=== PATIENT | female | born 1945 | race Two or more races ===

== ENCOUNTER → 2024-11-06 | Outpatient (CLI) | payer MEDICARE, MEDICAID, SELFPAY ==
[2024-11-06 16:49] LABS: Basophils % (Auto) 1 % (0-2.5); Eosinophils # (Auto) 0.5 Thou/mm3 (0.0-0.5); Eosinophils % (Auto) 7 % (0-10); Hematocrit 34.1 % (36.0-46.0); Hemoglobin 10.8 g/dL (12.0-16.0); Immature Granulocytes % (Auto) 1 % (0-0); Immature Granulocytes Auto 0.05 Thou/mm3 (0.00-0.00); Lymphocytes # (Auto) 2.3 Thou/mm3 (1.0-4.8); Lymphocytes % (Auto) 36 % (10-50); Mean Corpuscular HGB Conc 31.7 g/dl (31.0-37.0); Mean Corpuscular Volume 88 fL (80-100); Monocytes # (Auto) 0.6 Thou/mm3 (0.0-0.8); Monocytes % (Auto) 9 % (0-12); Neutrophils % (Auto) 46 % (37-80); Nucleated Red Blood Cell % 0 /100 WBC (0); Platelet Count 184 Thou/mm3 (140-440); RDW Standard Deviation 46.2 fL (36.4-46.3); Red Blood Count 3.86 Miln/mm3 (4.00-5.20); White Blood Count 6.5 Thou/mm3 (3.6-11.0)
[2024-11-06 17:13] LABS: Albumin, Serum 3.8 gm/dL (3.4-4.8); Anion Gap 8 (7-16); BUN/Creatinine Ratio 21 Ratio (12-20); Blood Urea Nitrogen 33 mg/dL (9-23); Calcium 8.8 mg/dL (8.3-10.6); Carbon Dioxide 25.8 mMol/L (20.0-31.0); Chloride 107 mMol/L (98-107); Creatinine (Component) 1.6 mg/dL (0.6-1.3); Glucose 187 mg/dL (74-106); Osmolality,Calculated 293 (275-295); Phosphorous 3.7 mg/dL (2.4-5.1); Potassium 4.4 mMol/L (3.4-5.1); Sodium 141 mMol/L (136-145); eGFR 33 See Note
[2024-11-06 17:46] LABS: Iron 46 mcg/dL (50-170); Percent Iron Saturation 12 % (20-55); Total Iron Binding Capacity 356 mcg/dL (250-425); Unsaturated Iron Binding 310 (225-295)
== END | disposition home or self-care (01) ==
LOC: COPL 15:23
PROVIDERS: PCP Family Medicine; Referring Provider Internal Medicine; Visit Provider Internal Medicine
DX: I12.9 Hypertensive chronic kidney disease with stage 1 through stage 4 chronic kidney disease, or unspecified chronic kidney disease (principal); E11.22 Type 2 diabetes mellitus with diabetic chronic kidney disease; N18.32 Chronic kidney disease, stage 3b
CPT/HCPCS: 36415; 80069; 83540; 83550; 85025

== ENCOUNTER → 2025-01-31 | Outpatient (CLI) | payer MEDICARE, MEDICAID, SELFPAY ==
[2025-01-31 17:12] LABS: Basophils # (Auto) 0.1 Thou/mm3 (0.0-0.2); Basophils % (Auto) 1 % (0-2.5); Eosinophils # (Auto) 0.4 Thou/mm3 (0.0-0.5); Eosinophils % (Auto) 7 % (0-10); Hematocrit 36.8 % (36.0-46.0); Hemoglobin 11.6 g/dL (12.0-16.0); Immature Granulocytes % (Auto) 0 % (0-0); Immature Granulocytes Auto 0.01 Thou/mm3 (0.00-0.00); Lymphocytes % (Auto) 31 % (10-50); Mean Corpuscular HGB Conc 31.5 g/dl (31.0-37.0); Mean Corpuscular Hemoglobin 29.2 pg (25.0-35.0); Mean Corpuscular Volume 93 fL (80-100); Monocytes # (Auto) 0.6 Thou/mm3 (0.0-0.8); Monocytes % (Auto) 9 % (0-12); Neutrophils # (Auto) 3.4 Thou/mm3 (1.8-7.7); Neutrophils % (Auto) 52 % (37-80); Nucleated Red Blood Cell % 0 /100 WBC (0); Platelet Count 174 Thou/mm3 (140-440); Red Blood Count 3.97 Miln/mm3 (4.00-5.20); White Blood Count 6.5 Thou/mm3 (3.6-11.0)
[2025-01-31 17:26] LABS: Albumin, Serum 3.8 gm/dL (3.4-4.8); Anion Gap 7 (7-16); BUN/Creatinine Ratio 21 Ratio (12-20); Blood Urea Nitrogen 31 mg/dL (9-23); Calcium 8.8 mg/dL (8.3-10.6); Carbon Dioxide 25.2 mMol/L (20.0-31.0); Chloride 113 mMol/L (98-107); Creatinine (Component) 1.5 mg/dL (0.6-1.3); Glucose 166 mg/dL (74-106); Osmolality,Calculated 299 (275-295); Phosphorous 3.1 mg/dL (2.4-5.1); Potassium 4.6 mMol/L (3.4-5.1); Sodium 145 mMol/L (136-145); eGFR 35 See Note
[2025-01-31 17:33] LABS: Iron 53 mcg/dL (50-170); Percent Iron Saturation 15 % (20-55); Total Iron Binding Capacity 335 mcg/dL (250-425); Unsaturated Iron Binding 282 (225-295)
[2025-01-31 17:37] LABS: Vitamin D 25 Hydroxy Total 23.3 ng/mL (7.3-40.2)
== END | disposition home or self-care (01) ==
LOC: COPL 15:43
PROVIDERS: PCP Family Medicine; Referring Provider Internal Medicine; Visit Provider Internal Medicine
DX: I12.9 Hypertensive chronic kidney disease with stage 1 through stage 4 chronic kidney disease, or unspecified chronic kidney disease (principal); E11.22 Type 2 diabetes mellitus with diabetic chronic kidney disease; N18.32 Chronic kidney disease, stage 3b
CPT/HCPCS: 36415; 80069; 82306; 83540; 83550; 85025

== ENCOUNTER → 2025-05-03 | Outpatient (CLI) | payer MEDICARE, MEDICAID, SELFPAY ==
[2025-05-03 16:29] LABS: Basophils # (Auto) 0.1 Thou/mm3 (0.0-0.2); Basophils % (Auto) 1 % (0-2.5); Eosinophils # (Auto) 0.4 Thou/mm3 (0.0-0.5); Eosinophils % (Auto) 6 % (0-10); Hematocrit 35.1 % (36.0-46.0); Hemoglobin 11.7 g/dL (12.0-16.0); Immature Granulocytes Auto 0.02 Thou/mm3 (0.00-0.00); Lymphocytes # (Auto) 2.0 Thou/mm3 (1.0-4.8); Lymphocytes % (Auto) 27 % (10-50); Mean Corpuscular HGB Conc 33.3 g/dl (31.0-37.0); Mean Corpuscular Hemoglobin 30.0 pg (25.0-35.0); Mean Corpuscular Volume 90 fL (80-100); Monocytes # (Auto) 0.6 Thou/mm3 (0.0-0.8); Monocytes % (Auto) 8 % (0-12); Neutrophils # (Auto) 4.3 Thou/mm3 (1.8-7.7); Neutrophils % (Auto) 59 % (37-80); Nucleated Red Blood Cell # 0.00 Thou/mm3 (0.00-0.00); Nucleated Red Blood Cell % 0 /100 WBC (0); Platelet Count 184 Thou/mm3 (140-440); RDW Standard Deviation 45.1 fL (36.4-46.3); Red Blood Count 3.90 Miln/mm3 (4.00-5.20); White Blood Count 7.4 Thou/mm3 (3.6-11.0)
[2025-05-03 16:50] LABS: Albumin, Serum 3.9 gm/dL (3.4-4.8); Anion Gap 10 (7-16); BUN/Creatinine Ratio 24 Ratio (12-20); Blood Urea Nitrogen 36 mg/dL (9-23); Calcium 8.9 mg/dL (8.3-10.6); Calcium (Corrected) 9.0 mg/dL (8.5-10.1); Carbon Dioxide 23.0 mMol/L (20.0-31.0); Chloride 110 mMol/L (98-107); Creatinine (Component) 1.5 mg/dL (0.6-1.3); Glucose 220 mg/dL (74-106); Osmolality,Calculated 300 (275-295); Phosphorous 3.1 mg/dL (2.4-5.1); Potassium 4.4 mMol/L (3.4-5.1); Sodium 143 mMol/L (136-145); eGFR 35 See Note
[2025-05-03 16:59] LABS: Iron 47 mcg/dL (50-170); Percent Iron Saturation 14 % (20-55); Total Iron Binding Capacity 323 mcg/dL (250-425); Unsaturated Iron Binding 276 (225-295)
[2025-05-03 17:03] LABS: Vitamin D 25 Hydroxy Total 36.9 ng/mL (7.3-40.2)
== END | disposition home or self-care (01) ==
LOC: COPL 15:25
PROVIDERS: PCP Family Medicine; Referring Provider Internal Medicine; Visit Provider Internal Medicine
DX: D50.9 Iron deficiency anemia, unspecified (principal); E11.22 Type 2 diabetes mellitus with diabetic chronic kidney disease; I12.9 Hypertensive chronic kidney disease with stage 1 through stage 4 chronic kidney disease, or unspecified chronic kidney disease; N18.32 Chronic kidney disease, stage 3b
CPT/HCPCS: 36415; 80069; 82306; 83540; 83550; 85025

== ENCOUNTER → 2025-08-09 | Outpatient (CLI) | payer MEDICARE, MEDICAID, SELFPAY ==
[2025-08-09 16:26] LABS: Basophils # (Auto) 0.1 Thou/mm3 (0.0-0.2); Basophils % (Auto) 1 % (0-2.5); Eosinophils # (Auto) 0.3 Thou/mm3 (0.0-0.5); Eosinophils % (Auto) 5 % (0-10); Hematocrit 37.1 % (36.0-46.0); Hemoglobin 11.8 g/dL (12.0-16.0); Immature Granulocytes Auto 0.02 Thou/mm3 (0.00-0.00); Lymphocytes # (Auto) 2.0 Thou/mm3 (1.0-4.8); Lymphocytes % (Auto) 30 % (10-50); Mean Corpuscular HGB Conc 31.8 g/dl (31.0-37.0); Mean Corpuscular Hemoglobin 30.2 pg (25.0-35.0); Mean Corpuscular Volume 95 fL (80-100); Monocytes # (Auto) 0.5 Thou/mm3 (0.0-0.8); Monocytes % (Auto) 8 % (0-12); Neutrophils # (Auto) 3.7 Thou/mm3 (1.8-7.7); Neutrophils % (Auto) 56 % (37-80); Nucleated Red Blood Cell # 0.00 Thou/mm3 (0.00-0.00); Nucleated Red Blood Cell % 0 /100 WBC (0); Platelet Count 182 Thou/mm3 (140-440); RDW Standard Deviation 47.4 fL (36.4-46.3); Red Blood Count 3.91 Miln/mm3 (4.00-5.20); White Blood Count 6.6 Thou/mm3 (3.6-11.0)
[2025-08-09 16:38] LABS: Albumin, Serum 4.2 gm/dL (3.4-4.8); Anion Gap 10 (7-16); BUN/Creatinine Ratio 16 Ratio (12-20); Blood Urea Nitrogen 27 mg/dL (9-23); Calcium 8.7 mg/dL (8.3-10.6); Calcium (Corrected) 8.7 mg/dL (8.5-10.1); Carbon Dioxide 25.1 mMol/L (20.0-31.0); Chloride 113 mMol/L (98-107); Creatinine (Component) 1.7 mg/dL (0.6-1.3); Glucose 132 mg/dL (74-106); Iron 50 mcg/dL (50-170); Osmolality,Calculated 301 (275-295); Percent Iron Saturation 15 % (20-55); Phosphorous 3.3 mg/dL (2.4-5.1); Potassium 4.4 mMol/L (3.4-5.1); Sodium 148 mMol/L (136-145); Total Iron Binding Capacity 327 mcg/dL (250-425); Unsaturated Iron Binding 277 (225-295); eGFR 30 See Note
== END | disposition home or self-care (01) ==
LOC: COPL 15:32
PROVIDERS: PCP Family Medicine; Referring Provider Internal Medicine; Visit Provider Internal Medicine
DX: I12.9 Hypertensive chronic kidney disease with stage 1 through stage 4 chronic kidney disease, or unspecified chronic kidney disease (principal); E11.22 Type 2 diabetes mellitus with diabetic chronic kidney disease; N18.32 Chronic kidney disease, stage 3b; D50.9 Iron deficiency anemia, unspecified
CPT/HCPCS: 36415; 80069; 83540; 83550; 85025

== ENCOUNTER → 2025-09-03 | Outpatient (CLI) | payer MEDICARE, MEDICAID, SELFPAY ==
[2025-09-03 17:04] LABS: Albumin, Serum 4.2 gm/dL (3.4-4.8); Anion Gap 11 (7-16); BUN/Creatinine Ratio 23 Ratio (12-20); Blood Urea Nitrogen 32 mg/dL (9-23); Calcium 8.8 mg/dL (8.3-10.6); Calcium (Corrected) 8.8 mg/dL (8.5-10.1); Carbon Dioxide 24.3 mMol/L (20.0-31.0); Chloride 112 mMol/L (98-107); Creatinine (Component) 1.4 mg/dL (0.6-1.3); Glucose 130 mg/dL (74-106); Osmolality,Calculated 301 (275-295); Phosphorous 3.0 mg/dL (2.4-5.1); Potassium 4.6 mMol/L (3.4-5.1); Sodium 147 mMol/L (136-145); eGFR 38 See Note
== END | disposition home or self-care (01) ==
PROVIDERS: PCP Family Medicine; Referring Provider Internal Medicine; Visit Provider Internal Medicine
DX: I12.9 Hypertensive chronic kidney disease with stage 1 through stage 4 chronic kidney disease, or unspecified chronic kidney disease (principal); E11.22 Type 2 diabetes mellitus with diabetic chronic kidney disease; N18.32 Chronic kidney disease, stage 3b; D50.9 Iron deficiency anemia, unspecified
CPT/HCPCS: 36415; 80069

== ENCOUNTER 2025-10-14 08:25 | Inpatient (IN) | payer MEDICARE, MEDICAID, SELFPAY ==
[2025-10-14] VITALS (10 sets, daily range): BP systolic 138–167; BP diastolic 57–98; PULSE 49–54; RESP 18–22; TEMP 36.1–37.1; O2SAT 95–99; BMI 35.8
--- NOTE | 2025-10-14 08:30 | EKG_ITS ---
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
--- NOTE | 2025-10-14 08:52 | XR_ITS ---
Study: AP upright chest radiograph of 0901 hours 14 October 2025. INDICATION: Chest pressure and pain for 2 days. COMPARISON: Chest radiograph of 22 September 2017. FINDINGS: The lungs are fully expanded and free from alveolar infiltrates and nodules. There are no effusions. The heart is normal in size and contour. The aortic arch is minimally calcified. The descending segment is mildly tortuous. Peripheral vessels are normal in volume and distribution IMPRESSION: No acute diagnostic abnormality. No significant interval change./
--- NOTE | 2025-10-14 08:52 | PD.EDRME ---
Rapid Medical Screening Exam RME Arrival date/time: 10/14/25 08:25 79-year-old female with a history of type 2 diabetes, hypertension, presents to the emergency room with a chief complaint of 6 out of 10 sternal chest pain that radiates to her back x 1 day I have greeted and performed a focused initial assessment of this patient. A comprehensive ED assessment and evaluation of the patient, analysis of all test results, and completion of the medical decision making process will be conducted by additional ED providers. Chief Complaint: Chest Pain Time Seen by Provider: 10/14/25 08:39 Vital signs: Vital Signs Temperature 97.7 F 10/14/25 08:33 Pulse Rate 54 L 10/14/25 08:33 Respiratory Rate 18 10/14/25 08:33 Blood Pressure 164/66 H 10/14/25 08:33 Pulse Oximetry (%) 97 10/14/25 08:33 Oxygen Delivery Method Room Air 10/14/25 08:33 Vital signs reviewed by provider: Yes Exam: Clear bilateral lung sounds Strong and regular rhythm S1 and S2 noted Clinical Impression: STEMI/NSTEMI/chest pain
[2025-10-14 09:12] LABS: Basophils # (Auto) 0.1 Thou/mm3 (0.0-0.2); Basophils % (Auto) 1 % (0-2.5); Eosinophils # (Auto) 0.3 Thou/mm3 (0.0-0.5); Eosinophils % (Auto) 4 % (0-10); Hematocrit 40.4 % (36.0-46.0); Hemoglobin 12.6 g/dL (12.0-16.0); Immature Granulocytes Auto 0.02 Thou/mm3 (0.00-0.00); Lymphocytes # (Auto) 1.6 Thou/mm3 (1.0-4.8); Lymphocytes % (Auto) 22 % (10-50); Mean Corpuscular HGB Conc 31.2 g/dl (31.0-37.0); Mean Corpuscular Hemoglobin 29.4 pg (25.0-35.0); Mean Corpuscular Volume 94 fL (80-100); Monocytes # (Auto) 0.4 Thou/mm3 (0.0-0.8); Monocytes % (Auto) 6 % (0-12); Neutrophils # (Auto) 5.0 Thou/mm3 (1.8-7.7); Neutrophils % (Auto) 68 % (37-80); Nucleated Red Blood Cell # 0.00 Thou/mm3 (0.00-0.00); Nucleated Red Blood Cell % 0 /100 WBC (0); Platelet Count 186 Thou/mm3 (140-440); RDW Standard Deviation 46.2 fL (36.4-46.3); Red Blood Count 4.28 Miln/mm3 (4.00-5.20); White Blood Count 7.4 Thou/mm3 (3.6-11.0)
[2025-10-14 09:25] LABS: INR 1.0 (0.9-1.3); Partial Thromboplastin Time 27.2 Seconds (22.0-36.0); Prothrombin Time 10.6 Seconds (9.0-12.2)
[2025-10-14 09:27] LABS: B-Type Natriuretic Peptide 125 pg/mL (0-100)
--- NOTE | 2025-10-14 09:46 | PD.EDCHEST ---
ED Chest Pain RME/HPI General Chief Complaint: Chest Pain Stated Complaint: CHEST PAIN SINCE 7AM, SOB Time Seen by Provider: 10/14/25 08:39 Arrival date/time: 10/14/25 08:25 Limitations: no limitations RME / HPI RME / HPI narrative: 10/14/25 08:25 79-year-old female with a history of type 2 diabetes, hypertension, presents to the emergency room with a chief complaint of 6 out of 10 sternal chest pain that radiates to her back x 1 day I have greeted and performed a focused initial assessment of this patient. A comprehensive ED assessment and evaluation of the patient, analysis of all test results, and completion of the medical decision making process will be conducted by additional ED providers. DR. LR MAIN ED EVALUATION: 79 year old female with history of hypertension and diabetes presents to the ED for evaluation of chest pain beginning at 7 am today, remaining constant for ~ 30 min to 1 hour and since occurring intermittently. Described as sharp stabbing in sensation that is located most to substernal chest with radiation up to the left shoulder and back, rating 6/10 in severity. Accompanied by feeling slightly short of breath. No other associated symptoms reported. Denies fevers, chills, sweats, cough, abdominal pain, nausea, vomiting. Family history of cardiac disease, father had a heart attack in his 60s. Exam: Clear bilateral lung sounds Strong and regular rhythm S1 and S2 noted Impression: STEMI/NSTEMI/chest pain Related Data Home Medications ?Medication ?Instructions ?Recorded ?Confirmed glipizide 10 mg tablet 10 mg PO BID #0 tabs 09/20/17 10/14/25 losartan 100 mg tablet (Cozaar) 100 mg PO QDAY #0 tabs 09/20/17 10/14/25 montelukast 10 mg tablet 10 mg PO HS #0 tabs 09/20/17 10/14/25 (Singulair) chlorthalidone 50 mg tablet 50 mg PO QDAY #0 tabs 09/21/17 10/14/25 metoprolol succinate 100 mg 100 mg PO QDAY ##0 09/21/17 10/14/25 tablet,extended release 24 hr (Toprol XL) empagliflozin 25 mg tablet 25 mg PO QDAY 05/16/20 10/14/25 (Jardiance) nifedipine 10 mg capsule 50 mg PO QDAY 05/16/20 10/14/25 albuterol sulfate 90 mcg/actuation 2 puff inhalation PRN 10/14/25 10/14/25 aerosol inhaler aspirin 81 mg tablet,delayed 81 mg PO QDAY 10/14/25 10/14/25 release atorvastatin 10 mg tablet 10 mg PO QDAY 10/14/25 10/14/25 insulin glargine 100 unit/mL (3 25 unit subcut .am 10/14/25 10/14/25 mL) subcutaneous pen (Lantus Solostar U-100 Insulin) loratadine 10 mg tablet 10 mg PO QDAY 10/14/25 10/14/25 Allergies Allergy/AdvReac Type Severity Reaction Status Date / Time Penicillins Allergy Intermediate RASH AND Verified 10/14/25 08:27 ITCHING lisinopril Allergy Mild Cough Verified 10/14/25 08:27 metformin Allergy Mild Rash Verified 10/14/25 08:27 Review of Systems Review of Systems Systems Reviewed: All systems reviewed, normal except as documented Past Medical History Past Medical History CARDIAC: Positive Cardiac Disorders and Hypertension RESPIRATORY: Positive Asthma GASTROINTESTINAL: Positive Gastrointestinal Disorders, Hemorrhoids and Obesity GENITOURINARY: Positive Genitourinary Disorders and Renal Disease REPRODUCTIVE: Positive Previous Pregnancies (x3) MUSCULOSKELETAL: Positive Musculoskeletal Disorders and Arthritis ENT: Positive Cataracts ENDOCRINE: Positive Endocrine Disorders and Diabetes Mellitus Type 2 OTHER HISTORY: Positive Chicken Pox and Measles Family History FAMILY HISTORY: Positive Family Cancer Surgical History SURGICAL: Positive Tubal Ligation Social History SMOKING STATUS: Never smoker ED Exam General Limitations: Present no limitations General appearance: Present alert, in no apparent distress, obese and other (wears glasses ) Head Head exam: Present atraumatic Eye Eye exam: Present normal appearance, PERRL and EOMI ENT ENT exam: Present normal exam, normal oropharynx and mucous membranes moist Neck Neck exam: Present normal inspection, full ROM and trachea midline Chest Chest inspection: Present normal inspection and symmetric chest wall rise Respiratory Respiratory exam: Present normal lung sounds bilaterally Cardiovascular Cardiovascular exam: Present regular rate, normal rhythm and normal heart sounds Abdominal Exam Abdominal exam: Present soft and normal bowel sounds Extremities Exam Extremities exam: Present normal inspection and full ROM Back Exam Back exam: Present normal inspection and full ROM Neurological Exam Neurological exam: Present alert, oriented X3 and CN II-XII intact Psychiatric Psychiatric exam: Present normal affect and normal mood Skin Skin exam: Present warm, dry, intact and normal color Course Quality Measures none Orders Category Date Time Status Admit to Inpatient Status Routine Admission 10/14/25 18:16 Active Patient Condition Routine Admission 10/14/25 18:15 Ordered COVID-19 Screening Questionnaire NOW Care 10/14/25 17:07 Active Toys Inspector NOW Care 10/14/25 09:41 Active Continuous Pulse Oximetry NOW Care 10/14/25 09:41 Completed Decision to Admit X1 Care 10/14/25 17:07 Completed EKG (ED ONLY) *Do not use* NOW Care 10/14/25 08:30 Completed EKG (ED ONLY) *Do not use* NOW Care 10/14/25 15:14 Completed Insert IV NOW Care 10/14/25 09:41 Active NPO NOW Care 10/14/25 18:16 Active Notify provider NEEDED Care 10/14/25 18:15 Active Consult to Cardiology Stat Cons 10/14/25 17:06 Ordered CA echo doppler complete Stat Exams 10/14/25 17:04 Completed EKG (ED Only) Stat Exams 10/14/25 08:30 Draft EKG (ED Only) Stat Exams 10/14/25 15:14 Ordered XR chest 1V portable Stat Exams 10/14/25 08:52 Completed B-Type Natriuretic Peptide Stat Lab 10/14/25 09:00 Completed CBC AM DRAW Lab 10/17/25 05:00 Ordered CBC AM DRAW Lab 10/15/25 05:30 Completed CBC AM DRAW Lab 10/16/25 05:00 Ordered CBC Stat Lab 10/14/25 09:00 Completed Comprehensive Metabolic Panel AM DRAW Lab 10/17/25 05:00 Ordered Comprehensive Metabolic Panel AM DRAW Lab 10/15/25 05:30 Completed Comprehensive Metabolic Panel AM DRAW Lab 10/16/25 05:00 Ordered Comprehensive Metabolic Panel Stat Lab 10/14/25 09:00 Completed Free T4 (Free Thyroxine) Stat Lab 10/14/25 09:00 Completed Magnesium AM DRAW Lab 10/17/25 05:00 Ordered Magnesium AM DRAW Lab 10/15/25 05:30 Completed Magnesium AM DRAW Lab 10/16/25 05:00 Ordered Magnesium Stat Lab 10/14/25 09:00 Completed Partial Thromboplastin Time Stat Lab 10/14/25 09:00 Completed Phosphorous AM DRAW Lab 10/17/25 05:00 Ordered Phosphorous AM DRAW Lab 10/15/25 05:30 Completed Phosphorous AM DRAW Lab 10/16/25 05:00 Ordered Prothrombin Time with INR Stat Lab 10/14/25 09:00 Completed TSH [Thyroid Stimulating Hormone] Stat Lab 10/14/25 09:00 Completed Troponin I Q4H Lab 10/14/25 19:01 Completed Troponin I Q4H Lab 10/14/25 22:40 Completed Troponin I Stat Lab 10/14/25 09:00 Completed Troponin I Stat Lab 10/14/25 13:27 Completed Troponin I Stat Lab 10/14/25 15:26 Completed Urinalysis, C/S if Indicated Stat Lab 10/14/25 09:33 Completed Acetaminophen Tab [Tylenol Tab] Med 10/14/25 18:15 Active 650 mg PO Q6H PRN Acetaminophen Tab [Tylenol Tab] Med 10/14/25 18:15 Active 650 mg PO Q6H PRN Aspirin Med 10/14/25 17:07 Discontinued 325 mg PO X1 ONE Aspirin [Ecotrin] Med 10/15/25 06:15 Discontinued 81 mg PO X1 ONE HYDROcodone*/APAP 5/325 [[place] 5/325] Med 10/14/25 18:15 Active 1 tab PO Q4HR PRN Sodium Chloride 0.9% 1000 ml [Ns] 1,000 ml Med 10/14/25 09:41 Discontinued IV 999 mls/hr Code Status Routine Oth 10/14/25 18:15 Ordered Vital Signs Vital signs: Vital Signs Temperature 97.7 F 10/14/25 08:33 Pulse Rate 54 L 10/14/25 08:33 Respiratory Rate 18 10/14/25 08:33 Blood Pressure 164/66 H 10/14/25 08:33 Pulse Oximetry (%) 97 10/14/25 08:33 Oxygen Delivery Method Room Air 10/14/25 08:33 Pulse ox is 97% on room air which is adequate. Chest Pain MDM Narrative MDM Narrative:: Hina Quevedo, am scribing for and in the presence of Dr. Lr. I spoke with child care cook Dr. Navas. Discussed patients PMHx, HPI, ED course, exam findings, labs, and radiology results. He agrees to consult. I spoke with hospitalist team for admission. Discussed patients PMHx, HPI, ED course, exam findings, labs, and radiology results. The hospitalist agree to accept the patient for admission. Patient data External records reviewed:: [facility] previous records Clinical information provided by:: patient Social determinants that could affect healthcare access:: none Patient has the following chronic illnesses:: HTN, DM How is presenting disease/condition affected by chronic disease/condition?: exacerbated by Evaluation data The following diagnostics were reviewed and interpreted by me:: lab results, radiology exam(s) and EKG tracing(s) (EKG @ 08:33 AM, interpreted by me, sinus bradycardia, rate 56, no STEMI. EKG #2 @ 16:11, interpreted by me, atrial fibrillation with slow ventricular response, rate 49, no STEMI. ) Lab and/or radiology exams considered but not ordered:: None Interpretation Summary: Ordering Physician: Yayo Steve Date of Service: 10/14/25 Procedure(s): XR chest 1V portable Accession Number(s): [id number] cc: Daron Meraz MD; Yayo Steve; Chao Henry MD~ Study: AP upright chest radiograph of 0901 hours 14 October 2025. INDICATION: Chest pressure and pain for 2 days. COMPARISON: Chest radiograph of 22 September 2017. FINDINGS: The lungs are fully expanded and free from alveolar infiltrates and nodules. There are no effusions. The heart is normal in size and contour. The aortic arch is minimally calcified. The descending segment is mildly tortuous. Peripheral vessels are normal in volume and distribution IMPRESSION: No acute diagnostic abnormality. No significant interval change./ Dictated By: Chao Henry MD Signed By: <Electronically signed by Chao Henry MD in OV> 10/14/25 0941 Medications / Prescriptions Medications or Prescriptions considered but not ordered:: None Medication administrations:: Medication Administration History Acetaminophen (Acetaminophen 325 Mg Tablet) 650 mg PO Q6H PRN PRN Reason: Fever >101.5 Stop: 11/13/25 18:14 Acetaminophen (Acetaminophen 325 Mg Tablet) 650 mg PO Q6H PRN PRN Reason: PAIN SCALE 1-3 (mild Stop: 11/13/25 18:14 Hydrocodone Bitart/Acetaminophen (Hydrocodone/Apap 5/325 Tablet) 1 tab PO Q4HR PRN PRN Reason: PAIN SCALE 4-6 (Moderate Stop: 10/19/25 18:14 Aspirin (Aspirin Ec 81 Mg Tabec) 81 mg PO QDAY [facility] Stop: 11/14/25 08:59 Last Admin: 10/15/25 08:31 Dose: Not Given Documented By: FELICIA Non-Admin Reason: already received in AM Atorvastatin Calcium (Atorvastatin Calcium 20 Mg Tablet) 40 mg PO HS [facility] Stop: 11/14/25 20:59 Carvedilol (Carvedilol 3.125 Mg Tablet) 6.25 mg PO BIDWM [facility] Stop: 11/13/25 21:39 Last Admin: 10/15/25 08:15 Dose: 6.25 mg Documented By: Admin: 10/14/25 22:07 Dose: Not Given Documented By: SHAHNAZ Non-Admin Reason: hold per md. HR 40's Dextrose (Dextrose 50%-Water Inj 50 Ml Syringe) 25 ml IV Q15MIN PRN PRN Reason: BG 50-70 responsive npo pt Stop: 11/13/25 18:34 Last Admin: 10/14/25 20:08 Dose: 25 ml Documented By: THERESA Dextrose (Dextrose 50%-Water Inj 50 Ml Syringe) 50 ml IV Q15MIN PRN PRN Reason: BG <50 OR BG <70 & pt unresponsive Stop: 11/13/25 18:34 Glucagon (Glucagon Inj 1 Mg Vial) 1 mg IM Q15MIN PRN PRN Reason: BG <70, and no IV access Heparin Sodium/Dextrose (Heparin In D5w Ivpb) 25,000 unit in 250 mls @ 10.668 mls/hr IV .[id number] [facility]; Protocol Stop: 10/28/25 18:59 Last Titration: 10/15/25 06:54 Dose: 12 units/kg/hr, 10.668 mls/hr Documented By: FELICIA Co-signed By: SHAHNAZ Titration: 10/15/25 04:18 Dose: 12 units/kg/hr, 10.668 mls/hr Documented By: SHAHNAZ Co-signed By: [facility] Admin: 10/14/25 19:33 Dose: 12 units/kg/hr, 10.668 mls/hr Documented By: THERESA Co-signed By: EE Insulin Human Lispro (Insulin Lispro (Admelog) 1 Unit/0.01 Ml Unit) 0 unit SC Q6HR [facility]; Protocol Stop: 11/14/25 11:59 Losartan Potassium (Losartan Potassium 25 Mg Tablet) 100 mg PO QDAY [facility] Stop: 11/14/25 08:59 Last Admin: 10/15/25 08:14 Dose: 100 mg Documented By: FELICIA Nifedipine (Nifedipine Xl 30 Mg Tabcr) 60 mg PO QDAY [facility] Stop: 11/13/25 19:44 Last Admin: 10/15/25 08:15 Dose: 60 mg Documented By: Admin: 10/14/25 20:03 Dose: Not Given Documented By: THERESA Non-Admin Reason: Patient Refused Comments: PT REFUSED BECAUSE I TOOK IT THIS MORNING I DONT WANR ADDITIONAL AMOUNT Nitroglycerin (Nitroglycerin 0.4 Mg/Hr Patch.Td24) 0.4 mg TOP X1 PRN PRN Reason: chest pain Stop: 11/13/25 19:33 Discontinued Medications Aspirin (Aspirin 325 Mg Tablet) 325 mg PO X1 ONE Stop: 10/14/25 17:08 Last Admin: 10/14/25 17:47 Dose: 325 mg Documented By: CAROLIN Aspirin (Aspirin Ec 81 Mg Tabec) 81 mg PO X1 ONE Stop: 10/15/25 06:16 Last Admin: 10/15/25 05:27 Dose: 81 mg Documented By: SHAHNAZ Atorvastatin Calcium (Atorvastatin Calcium 10 Mg Tablet) 40 mg PO X1 ONE Stop: 10/14/25 18:23 Last Admin: 10/14/25 18:46 Dose: 40 mg Documented By: CAROLIN Furosemide (Furosemide Inj 10 Mg/Ml 4ml Vial) 20 mg IVP X1 ONE Stop: 10/14/25 19:42 Last Admin: 10/14/25 20:02 Dose: 20 mg Documented By: THERESA Comments: Heparin Sodium (Porcine) (Heparin Sod Inj 5000 Unit/Ml Vial) 4,000 unit IV X1 ONE; Protocol Stop: 10/14/25 18:57 Last Admin: 10/14/25 19:32 Dose: 4,000 unit Documented By: THERESA Co-signed By: EMY Sodium Chloride (Ns) 1,000 mls @ 999 mls/hr IV .Q1H1M ONE Stop: 10/14/25 10:41 Last Infusion: 10/14/25 11:12 Dose: Infused Documented By: Admin: 10/14/25 10:11 Dose: 999 mls/hr Documented By: CAROLIN Magnesium Sulfate/Dextrose (Magnesium Sulfate Ivpb) 1 gm in 100 mls @ 100 mls/hr IV X1 ONE Stop: 10/15/25 08:33 Last Admin: 10/15/25 08:16 Dose: 100 mls/hr Documented By: FELICIA Insulin Human Lispro (Insulin Lispro (Admelog) 1 Unit/0.01 Ml Unit) 0 unit SC ACHS [facility]; Protocol Stop: 11/13/25 20:59 Last Admin: 10/14/25 20:13 Dose: Not Given Documented By: THERESA Non-Admin Reason: Per Protocol Losartan Potassium (Losartan Potassium 25 Mg Tablet) 50 mg PO QDAY [facility] Stop: 11/13/25 18:29 Last Admin: 10/14/25 18:47 Dose: 50 mg Documented By: TM See above Consultations Consultation(s) initiated? (list below): Yes Diagnosis Most likely diagnosis given after review of the tests above:: Chest pain Elevated troponin Admission Indicated Admission indicated?: indicated Admission Request Was there a request for admission?: Yes Admission Attestation Admission request attestation: Discussed case with [] from Hospitalist service regarding admission. Discussed patients ED course, exam findings, labs, and radiology results. The Hospitalist [agrees,declines] to accept the patient for admission. Disposition Plan Disposition Plan: Admit Discharge Plan Plan Patient Disposition: Admit Acute Care w/in Hospital Problem List Clinical Impression: Chest pain, Elevated troponin
[2025-10-14 09:50] LABS: Alanine Aminotransferase 11 U/L (10-49); Albumin, Serum 4.2 gm/dL (3.4-4.8); Albumin/Globulin Ratio 1.2 (1.2-2.2); Alkaline Phosphatase 134 U/L (46-116); Anion Gap 11 (7-16); Aspartate Amino Transferase 15 U/L (0-34); BUN/Creatinine Ratio 18 Ratio (12-20); Bilirubin,Total 0.5 mg/dL (0.3-1.2); Blood Urea Nitrogen 25 mg/dL (9-23); Calcium 9.0 mg/dL (8.3-10.6); Calcium (Corrected) 9.0 mg/dL (8.5-10.1); Carbon Dioxide 23.1 mMol/L (20.0-31.0); Chloride 111 mMol/L (98-107); Creatinine (Component) 1.4 mg/dL (0.6-1.3); Estimated Creatinine Clearance 33.8 mL/min (>60); Free T4 (Free Thyroxine) 0.95 ng/dL (0.89-1.76); Globulin 3.5 gm/dL (2.3-3.5); Glucose 168 mg/dL (74-106); Magnesium 2.1 mg/dL (1.6-2.6); Osmolality,Calculated 297 (275-295); Potassium 4.6 mMol/L (3.4-5.1); Sodium 145 mMol/L (136-145); Thyroid Stimulating Hormone 1.58 uIU/mL (0.55-4.78); Total Protein 7.7 gm/dL (5.7-8.2); Troponin I < 0.020 ng/mL (0.0-0.045); eGFR 38 See Note
[2025-10-14 09:53] LABS: Collection Type, Urine Clean Catch
[2025-10-14] MEDS: SODIUM CHLORIDE 0.9% 1000 ML 1,000 ML 999 ML IV (10:11)
[2025-10-14 10:13] LABS: Bilirubin,Urine Negative (Negative); Blood,Urine Negative (Negative); Clarity,Urine Clear (Clear/Hazy); Color,Urine Lt-Yellow (Lt Yel-Yel); Culture Indicated,Urine Not Indicated; Glucose, Urine 4+ (Negative); Ketones,Urine Negative (Negative); Leukocyte Esterase,Urine Positive (Negative); Nitrite,Urine Negative (Negative); PH,Urine 6.0 (5.0-7.0); Protein,Urine Negative (Neg - Trace); RBC,Urine 2 /hpf (0-3); Specific Gravity,Urine 1.022 (1.001-1.035); Squamous Epithelial Cell,Urine 6 /hpf (0-5); Urobilinogen,Urine Negative mg/dL (0.0-1.0); WBC,Urine 3 /hpf (0-5)
--- NOTE | 2025-10-14 10:15 | PC.NURSE ---
PT STATES SHE BELIEVES HER PAIN HAS RESOLVED, STATES SHE WAS HAVING SHARP MID-STERNAL CHEST PAIN THAT RADIATED TO HER BACK. PT HAS FLUIDS INFUSING, SB ON TELE, OTHER VSS CALL [facility] IN REACH, IN AGREEMENT W/POC.
[2025-10-14 14:26] LABS: Troponin I 0.069 ng/mL (0.0-0.045)
--- NOTE | 2025-10-14 15:14 | EKG_ITS ---
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
[2025-10-14 16:24] LABS: Troponin I 0.102 ng/mL (0.0-0.045)
--- NOTE | 2025-10-14 17:04 | ECHO_ITS ---
Patient Info Name: Anju Carmen Age: 79 years : 1945 Gender: Female Ht: 157 cm Wt: 89 kg BSA: 2.01 m2 BP: 157 / 68 mmHg HR: 52 bpm Exam Date: 10/14/2025 5:23 PM Admit Date: 10/14/2025 Site: [facility] Room Number: ER Patient Status: E Exam Type: CA echo doppler complete Tool Grinder Set Up Operator Gear: Melina Servin Ordering Physician: Jeremy Bond Study Info Indications CHEST PAIN - Primary Location: SERX Left Ventricular Outflow Tract Name Value Normal LVOT 2D LVOT Diameter 1.9 cm LVOT Doppler LVOT Peak Velocity 110 cm/s LVOT Mean Gradient 2 mmHg LVOT VTI 29 cm LVOT VTI/AV VTI Ratio 0.8 LVOT Stroke Volume 81 ml Pulmonic Valve Name Value Normal PV Doppler PV Peak Velocity 95 cm/s Mitral Valve Name Value Normal MV Doppler MV Mean Gradient 2 mmHg MV Decel [place] 245 cm/s2 MV PHT 79 ms MV Area (PHT) 2.8 cm2 4.0-5.0 MV Area (Cont Eq VTI) 1.6 cm2 MV Diastolic Function MV E Peak Velocity 67 cm/s MV A Peak Velocity 53 cm/s MV E/A 1.3 MV Annular TDI MV Septal e' Velocity 10.6 cm/s MV E/e' (Septal) 6.3 MV Lateral e' Velocity 8.3 cm/s MV E/e' (Lateral) 8.0 MV e' Average 9.44 cm/s MV E/e' (Average) 7.2 Tricuspid Valve Name Value Normal TV Regurgitation Doppler TR Peak Velocity 220 cm/s Estimated PAP/RSVP RA Pressure 8 mmHg <=5 PA Systolic Pressure 27 mmHg <36 RV Systolic Pressure 27 mmHg <36 TV Annular TDI TV Lateral Lisa s' Velocity 13.7 cm/s >=9.5 Aortic Valve Name Value Normal AV 2D/MM AV Cusp Sep (MM) 1.0 cm AV Doppler AV Peak Velocity 155 cm/s AV Mean Gradient 5 mmHg AV VTI 38 cm AV Area (Cont Eq VTI) 2.2 cm2 >=3.0 AV Area (Cont Eq Jenaro) 2.0 cm2 AV DI (Jenaro) 0.71 AV Regurgitation 2D LVOT Area 2.8 cm2 Ventricles Name Value Normal LV Dimensions 2D/MM IVS Diastolic Thickness (2D) 0.7 cm 0.6-0.9 LVID Diastole (2D) 4.5 cm 3.8-5.2 LVIW Diastolic Thickness (2D) 0.9 cm 0.6-0.9 LVID Systole (2D) 3.3 cm 2.2-3.5 LVOT Diameter 1.9 cm LV Mass (2D Cubed) 113.63 g 67.00-162.00 LV Mass Index (2D Cubed) 56 g/m2 43-95 Relative Wall Thickness (2D) 0.40 <=0.42 IVS/LVIW Diastolic Thickness (2D) 0.78 0.00-1.50 LV Fractional Shortening/Ejection Fraction 2D/MM LV Fractional Shortening (2D) 27 % 27-45 LV EF (2D Teichholz) 52 % RV Dimensions 2D/MM TV Lateral Lisa s' Velocity 13.7 cm/s >=9.5 Atria Name Value Normal LA Dimensions LA Volume (4C A-L) 33 ml LA Volume (BP A-L) 35 ml Left Ventricle Left ventricular chamber dimension is normal. Left ventricular systolic function is normal with visually estimated ejection fraction of 60-65%. There is mild concentric remodeling noted in the left ventricle. Left ventricular segmental wall motion is normal. There is normal diastolic function in the left ventricle. Right Ventricle Right ventricular chamber dimension is normal. Right ventricular systolic function is normal. Left Atrium Left atrial chamber dimension is mildly enlarged. Right Atrium Right atrial chamber dimension is normal. Aortic Valve The aortic valve is trileaflet. There is no aortic valve sclerosis. There is no aortic valve stenosis with a peak velocity of 155 cm/s, mean gradient of 5 mmHg, and aortic valve area of 2.2 cm2. There is no aortic valve regurgitation. Pulmonic Valve The pulmonic valve is normal. There is no pulmonic valve stenosis. There is no pulmonic regurgitation. Mitral Valve The mitral valve has normal leaflets. There is no mitral valve stenosis. There is trace mitral valve regurgitation. Tricuspid Valve The tricuspid valve leaflets are normal. There is no tricuspid valve stenosis. There is trace tricuspid valve regurgitation. No pulmonary hypertension, estimated pulmonary arterial systolic pressure is 27 mmHg and systemic blood pressure of 157 mmHg in systole. Pericardium/Pleural The pericardium appears normal. There is no pericardial effusion. No pleural effusion visualized. Inferior Vena Cava Normal inferior vena cava with >50% collapse upon inspiration consistent with normal right atrial pressure, 8 mmHg. Aorta The aortic measurements are indexed to age and body surface area. The aortic root at the sinus of Valsalva is not well visualized. The prox ascending aorta is not well visualized. Summary 1. Left ventricle size is normal and systolic function is normal. Estimated ejection fraction is 60-65%. There is normal diastolic function. There is mild concentric remodeling noted. 2. Right ventricle chamber size is normal and systolic function is normal. Estimated RVSP is 27 mmHg. 3. Trace MR and TR. Mild MAC. Mild to moderate AV sclerosis without stenosis. 4. Normal IVC with estimated RA pressure 8 mmHg. Report Signatures Finalized by Hugo Navas on 10/14/2025 06:45 PM
--- NOTE | 2025-10-14 18:42 | ESHP_ITS ---
<Statement entered by Marsha Cash MD - 10/15/25 07:29> Patient was seen and examined by me personally. I have directly supervised and reviewed documentation by the team resident and agree with its findings with any exceptions or additional findings as below. Plan of care was discussed with the attending, Dr. Tuttle. Marsha Cash, PGY-3 Documentation for date of: 10/14/25 HPI History of Present Illness Chief complaint: Chest pain and SOB History of present illness: History of present illness: Patient is a 79 year old female with past medical history of hypertension, hyperlipidemia, insulin-dependent diabetes mellitus, asthma presenting to ED on 10/14 with new-onset chest pain starting at 7 AM this morning. Pain was stabbing (10 out of 10 at maximum), episodic (improving with each episode) and last occurred at 11 AM; it was improved with activity. Denies shortness of breath, orthopnea, nausea, vomiting, diarrhea, fever, chills, abdominal pain. Patient has never had similar pain before. Family history significant for father dying of [place] in his 80s, mother dying of cancer in her 70s. Endorses R leg swelling. ED course: Troponin castro < 0.02 to 0.102, has not peaked. BNP 125. CXR no acute diagnostic abnormality. EKG showed A-fib with SVR and bradycardia with rate of 49. Echo showed EF 60-65% (normal). ED spoke with type cutter Dr. Navas who agrees to consult; ED also spoke with hospitalist team who agree to accept the patient for admission on 10/14. PMH: HLD, HTN, IDDM, asthma, hip pain PSH: finger surgery, tubes tied Allergies: grass, pollen Social history: Non smoker, previous social EtOH, never drugs Review of Systems Review of Systems Narrative Review of Systems: General: Denies fevers or chills HEENT: Denies congestion or sore throat Heart: Endorses stabbing chest pain Lungs: Denies shortness of breath or cough Abdomen: Denies diarrhea, nausea or vomiting, constipation, BRBPR, melena Genitourinary: Denies frequency, urgency, dysuria, hematuria Musculoskeletal: Endorses longstanding hip pain, denies muscular pain Neurology: Denies numbness, tingling ROS otherwise negative except what is mentioned above. Exam Vital Signs Temp Pulse Resp BP Pulse Ox O2 Del Method 97.5 F 52 L 18 157/68 H 96 Room Air 10/14/25 18:33 10/14/25 18:33 10/14/25 18:33 10/14/25 18:33 10/14/25 18:33 10/14/25 18:33 Narrative Exam General: A/O x3, no acute distress, well-nourished, well-developed Eyes: PERRL, EOMI. Anicteric, vision grossly intact. Ears: No ear pain, no ear discharge, Hearing grossly intact. Nose: No nasal discharge. Mouth/Throat: Moist mucous membranes, no redness, no lesions. Neck: Neck supple, non-tender, no cervical lymphadenopathy. Lungs: Clear KENNY to auscultation and percussion, No accessory muscle use. Cardio: Normal S1/S2, regular rhythm, no murmurs, no JVD or carotid bruits. Abdomen: Soft, non-tender, no palpable masses, peristalsis present, no guarding or rebound. Extremities: Symmetrical, no significant deformities, 2+ peripheral edema RLE, non-tender, peripheral pulses present. Skin: No rashes, no lesions, warm to touch. Neuro: No focal neurological deficits. Psych: Cooperative, appropriate mood and effect. Results: Labs 10/14/25 09:00 10/14/25 09:00 Labs: Short CBC 10/14/25 Range/Units 09:00 WBC 7.4 (3.6-11.0) Thou/mm3 Hgb 12.6 (12.0-16.0) g/dL Hct 40.4 (36.0-46.0) % Plt Count 186 (140-440) Thou/mm3 [facility] 10/14/25 09:00 Sodium 145 Potassium 4.6 Chloride 111 H Carbon Dioxide 23.1 BUN 25 H Creatinine 1.4 H Glucose 168 H Calcium 9.0 Cardiac Enzymes 10/14/25 10/14/25 10/14/25 Range/Units 09:00 13:27 15:26 Troponin I < 0.020 0.069 H* 0.102 H* (0.0-0.045) ng/mL Liver Function 10/14/25 Range/Units 09:00 Total Bilirubin 0.5 (0.3-1.2) mg/dL AST 15 (0-34) U/L ALT 11 (10-49) U/L Alkaline Phosphatase 134 H (46-116) U/L Albumin 4.2 (3.4-4.8) gm/dL Urine 10/14/25 Range/Units 09:33 Urine Color Lt-Yellow (Lt Yel-Yel) Urine Clarity Clear (Clear/Hazy) Urine pH 6.0 (5.0-7.0) Ur Specific [place] 1.022 (1.001-1.035) Urine Protein Negative (Neg - Trace) Urine Glucose (UA) 4+ A (Negative) Quality Measures Quality Measures none Advance care planning discussed with:: other Medications Home Medications and Allergies Home Medications ?Medication ?Instructions ?Recorded ?Confirmed ?Type glipizide 10 mg tablet 10 mg PO BID #0 tabs 7 10/14/25 History losartan 100 mg tablet (Cozaar) 100 mg PO QDAY #0 tabs 09/20/17 10/14/25 History montelukast 10 mg tablet 10 mg PO HS #0 tabs 09/20/17 10/14/25 History (Singulair) chlorthalidone 50 mg tablet 50 mg PO QDAY #0 tabs 04/0210/14/25 History metoprolol succinate 100 mg 100 mg PO QDAY ##0 7 10/14/25 History tablet,extended release 24 hr (Toprol XL) empagliflozin 25 mg tablet 25 mg PO QDAY 05/16/2009/17 History (Jardiance) nifedipine 10 mg capsule 50 mg PO QDAY 05/16/2010/14 History albuterol sulfate 90 mcg/actuation 2 puff inhalation P RN 10/14/25 10/14/25 History aerosol inhaler aspirin 81 mg tablet,delayed 81 mg PO QDAY 10/14/25 History release atorvastatin 10 mg tablet 10 mg PO QDAY 10/14/2510/14 History insulin glargine 100 unit/mL (3 25 unit subcut .am 10/14/25 History mL) subcutaneous pen (Lantus Solostar U-100 Insulin) loratadine 10 mg tablet 10 mg PO QDAY 10/14/2510/14 History Allergies Allergy/AdvReac Type Severity Reaction Status Date / Time Penicillins Allergy Intermediate RASH AND Verified 10/14/25 08:27 ITCHING lisinopril Allergy Mild Cough Verified 10/14/25 08:27 metformin Allergy Mild Rash Verified 10/14/25 08:27 Visit Medications Acetaminophen (Acetaminophen 325 Mg Tablet) 650 mg PO Q6H PRN PRN Reason: Fever >101.5 Stop: 11/13/25 18:14 Acetaminophen (Acetaminophen 325 Mg Tablet) 650 mg PO Q6H PRN PRN Reason: PAIN SCALE 1-3 (mild Stop: 11/13/25 18:14 Hydrocodone Bitart/Acetaminophen (Hydrocodone/Apap 5/325 Tablet) 1 tab PO Q4HR PRN PRN Reason: PAIN SCALE 4-6 (Moderate Stop: 10/19/25 18:14 Aspirin (Aspirin Ec 81 Mg Tabec) 81 mg PO X1 ONE Stop: 10/15/25 06:16 Dextrose (Dextrose 50%-Water Inj 50 Ml Syringe) 25 ml IV Q15MIN PRN PRN Reason: BG 50-70 responsive npo pt Stop: 11/13/25 18:34 Dextrose (Dextrose 50%-Water Inj 50 Ml Syringe) 50 ml IV Q15MIN PRN PRN Reason: BG <50 OR BG <70 & pt unresponsive Stop: 11/13/25 18:34 Glucagon (Glucagon Inj 1 Mg Vial) 1 mg IM Q15MIN PRN PRN Reason: BG <70, and no IV access Insulin Human Lispro (Insulin Lispro (Admelog) 1 Unit/0.01 Ml Unit) 0 unit SC ACHS [facility]; Protocol Stop: 11/13/25 20:59 Losartan Potassium (Losartan Potassium 25 Mg Tablet) 50 mg PO QDAY [facility] Stop: 11/13/25 18:29 Discontinued Medications Aspirin (Aspirin 325 Mg Tablet) 325 mg PO X1 ONE Stop: 10/14/25 17:08 Last Admin: 10/14/25 17:47 Dose: 325 mg Atorvastatin Calcium (Atorvastatin Calcium 10 Mg Tablet) 40 mg PO X1 ONE Stop: 10/14/25 18:23 Sodium Chloride (Ns) 1,000 mls @ 999 mls/hr IV .Q1H1M ONE Stop: 10/14/25 10:41 Last Infusion: 10/14/25 11:12 Dose: Infused Assessment & Plan Plan Patient is a 79 yo F with PMH of HTN, HLD, IDDM, asthma presenting to ED on 10/14 with new-onset chest pain. Patient admitted for NSTEMI workup on 10/14. #ACS #NSTEMI Type 1 Patient has new-onset chest pain starting at 7 AM this morning. Pain was stabbing (10 out of 10 max), episodic (improving with each episode) and improved with activity. Denies shortness of breath, orthopnea, nausea, vomiting, diarrhea, fever, chills, abdominal pain. Patient has never had similar pain before. Family history significant for father dying of [place]. Troponin uptrending < 0.02 on admission to 0.102; EKG shows A-fib with SVR. Echo shows normal EF (60-65%) and normal diastolic function. Plan: Cardiology consulted, appreciate recs Losartan 50 Heparin drip Aspirin 81 (325 given in ED) Atorvastatin 40 Lower extremity doppler to rule out DVT of RLE Nitroglycerin patch 1x prn Troponin q4h If troponin increase and/or chest pain, potential cath tomorrow A1c, Lipid panel, and TSH ordered #IDDM Plan: ISS step 1 #HTN Plan: See above plus nifedipine 60 qday #HLD Plan: See above Disposition: Tele DVT prophylaxis: Heaprin drip GI prophylaxis: Diet: NPO Lines: PIV CODE STATUS: Full This case was discussed with my attending physician, Dr. Tuttle, and senior resident, Dr. Cash. Matteo Shaw, PGY1 Attending Provider Attestation/Addendum I have discussed and was present for the essential components of the history, physical examination, diagnosis, and treatment plan with the resident. I agree with the patient's care as documented by the resident and amended herein by me. Americo Tuttle DO. Although this document has been carefully reviewed, there may still be some phonetic and other typographical errors. These errors are purely grammatical due to imperfections in the software program and should not be construed in any way to compromise the substance of the patient's medical care during this visit.
[2025-10-14] MEDS: ATORVASTATIN CALCIUM 10 MG TABLET 40 MG PO (18:46)
[2025-10-14] MEDS: LOSARTAN POTASSIUM 25 MG TABLET 50 MG PO (18:47)
--- NOTE | 2025-10-14 18:53 | XR_ITS ---
Examination: Venous duplex lower extremity sonogram, bilateral. Date and time of exam: October 14, 2025, 1942 hours INDICATION: Right foot swelling 6 months Technique: Multiple sonographic images of the deep venous system have been obtained. B-mode/2-D grayscale imaging of vascular structures and Doppler spectral analysis (waveforms) and color performed Both legs are examined. Findings: Deep venous systems do not demonstrate abnormal echogenicity. All visualized deep veins exhibit compressibility. All visualized deep veins exhibit augmentation. Impression: Negative for deep vein thrombosis
--- NOTE | 2025-10-14 18:54 | PD.RESCONSUL ---
HPI Data of Consult Requesting Physician: Amanuel Tuttle DO Admitting Provider: Amanuel Tuttle DO Attending Provider: Amanuel Tuttle DO Primary Care Provider: Daron Meraz MD Consult Narrative History of present illness: History of Present Illness: 79-year-old female with past medical history of hypertension, type 2 diabetes, asthma, hypercholesterolemia, and CKD stage 3b, presented to ED 10/14/2025 due to an episode of chest pain. The chest pain started this morning while she was sitting on a chair. The pain was 10 out of 10, intermittent, sharp, radiating to the back. At the time of chest pain, patient denied any symptoms of palpitations, shortness of breath, headaches, vision changes, or nausea and vomiting. The pain resolved on its own and fully resolved when she started to walk. Patient noted that this never happened before. She walks on a walker with limited mobility due to her hip condition, however she does not get out of breathe when she walks. She does have asthma and takes montelukast 10 mg once a day and Arnuity Ellipta 100 mcg inhaler once a day however she rarely needs to use albuterol inhaler. Currently the patient denies any chest pain, palpitations, or shortness of breath. Patient was admitted and cardiology consulted on 10/14/2025 for further assessment of ACS rule out and management of sinus bradycardia. ED course: Vitals: Temperature 97.7 F, DC 54, RR 18, BP 164/66, O2 sat 90% on room air. Labs: WBC 7.4, Hgb 12.6, potassium 4.6, creatinine 1.4, eGFR 38, magnesium 2.1, troponin<0.02 -> 0.069 -> 0.102. BNP 125. CXR (10/14/2025): Unremarkable findings EKG (10/14/2025): Showed sinus bradycardia In ED patient was given aspirin 325 mg p.o. x 1 and IVF NS bolus 1 L x 1. Medical history: As stated above Surgical history: Bilateral Lower Extremity Procedure in [employer] (Advised patient to bring the chart), Bilateral Cataract surgery Allergies: Dust, and Pollens Medications: Metoprolol ER succinate 100 mg p.o. daily, Losartan 100 mg p.o. daily, Chlorthalidone 50 mg p.o. daily, Nifedipine 30 mg p.o. daily, Aspirin 81 mg p.o. daily, Atorvastatin 10 mg p.o. daily, Jardiance 25 mg p.o. daily, Glipizide 10 mg p.o. twice daily, Loratadine 10 mg p.o. daily for allergy, Montelukast 10 mg p.o. daily, Lantus 25 units in the morning and 30 units in the evening, Albuterol inhaler as needed, Arnuity Ellipta 100 mcg inhaler once a day. Family history: Father due to Heart Attack at the age of 80s. Brother has Hx of Open Heart Surgery. Mother due to endometrial cancer at age of 70s Social history: Denies smoking cigarettes, drinking alcohol or using other illicit drugs. Limited mobility due to her hip pain, so limited exercise daily. 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 cc:: cc: Amanuel Tuttle, DO Review of Systems Review of Systems Narrative Review of Systems: All 12 systems assessed and the patient denies unless otherwise stated in HPI Exam Vital Signs Temp Pulse Resp BP Pulse Ox O2 Del Method 97.5 F 52 L 18 167/65 H 96 Room Air 10/14/25 18:33 10/14/25 18:47 10/14/25 18:33 10/14/25 18:47 10/14/25 18:33 10/14/25 18:33 Narrative Exam General: No acute distress, well nourished, AAO x3 Eye: PERRL, EOMI, normal conjunctiva, no scleral icterus HENT: Normocephalic, atraumatic, hearing intact to conversation at normal volume, moist oral mucosa Neck: Supple, non-tender, no JVD, no lymphadenopathy Lungs: Non-labored respirations, symmetric chest rise, Clear to auscultate bilaterally, No wheezing, rhonchi, crackles Heart: Peripheral pulses intact bilaterally, Regular Rate and Rhythm. Abdomen: Soft, non-tender, non-distended, no palpable masses Musculoskeletal: Normal range of motion and strength, +3 pitting edema on RLE, +2 pitting edema on LLE. Skin: Skin is warm, dry, no rashes or lesions. Psychiatric: Cooperative, appropriate mood and affect, Awake and alert, not agitated Neuro: Cranial nerves II-XII grossly intact. Strength 5/5 throughout. Sensations intact to light touch. Results Labs 10/14/25 09:00 10/14/25 09:00 Labs: Short CBC 10/14/25 Range/Units 09:00 WBC 7.4 (3.6-11.0) Thou/mm3 Hgb 12.6 (12.0-16.0) g/dL Hct 40.4 (36.0-46.0) % Plt Count 186 (140-440) Thou/mm3 BMP 10/14/25 09:00 Sodium 145 Potassium 4.6 Chloride 111 H Carbon Dioxide 23.1 BUN 25 H Creatinine 1.4 H Glucose 168 H Calcium 9.0 Cardiac Enzymes 10/14/25 10/14/25 10/14/25 Range/Units 09:00 13:27 15:26 Troponin I < 0.020 0.069 H* 0.102 H* (0.0-0.045) ng/mL Liver Function 10/14/25 Range/Units 09:00 Total Bilirubin 0.5 (0.3-1.2) mg/dL AST 15 (0-34) U/L ALT 11 (10-49) U/L Alkaline Phosphatase 134 H (46-116) U/L Albumin 4.2 (3.4-4.8) gm/dL Urine 10/14/25 Range/Units 09:33 Urine Color Lt-Yellow (Lt Yel-Yel) Urine Clarity Clear (Clear/Hazy) Urine pH 6.0 (5.0-7.0) Ur Specific [place] 1.022 (1.001-1.035) Urine Protein Negative (Neg - Trace) Urine Glucose (UA) 4+ A (Negative) Quality Measures Quality Measures none Advance care planning discussed with:: patient and other Medications Home Medications and Allergies Home Medications ?Medication ?Instructions ?Recorded ?Confirmed ?Type glipizide 10 mg tablet 10 mg PO BID #0 tabs 09/20/17 05/16/20 History losartan 100 mg tablet (Cozaar) 100 mg PO QDAY #0 tabs 09/20/17 05/16/20 History montelukast 10 mg tablet 10 mg PO HS #0 tabs 09/20/17 05/16/20 History (Singulair) chlorthalidone 50 mg tablet 50 mg PO QDAY #0 tabs 09/21/17 05/16/20 History dicyclomine 10 mg capsule (Bentyl) 10 mg PO Q4HR #0 caps 09/21/17 05/16/20 History metoprolol succinate 100 mg 100 mg PO QDAY ##0 09/21/17 05/16/20 History tablet,extended release 24 hr (Toprol XL) cholecalciferol (vitamin D3) 125 50,000 unit PO QWEEK 05/16/20 05/16/20 History mcg (5,000 unit) tablet (Vitamin D3) empagliflozin 25 mg tablet 25 mg PO QDAY 05/16/20 05/16/20 History (Jardiance) insulin glargine 100 unit/mL 18 unit subcut QPM 05/16/20 05/16/20 History subcutaneous solution (Lantus U-100 Insulin) nifedipine 10 mg capsule 50 mg PO QDAY 05/16/20 05/16/20 History sitagliptin phosphate 100 mg 100 mg PO QDAY 05/16/20 05/16/20 History tablet (Januvia) Allergies Allergy/AdvReac Type Severity Reaction Status Date / Time Penicillins Allergy Intermediate RASH AND Verified 10/14/25 08:27 ITCHING lisinopril Allergy Mild Cough Verified 10/14/25 08:27 metformin Allergy Mild Rash Verified 10/14/25 08:27 Visit Medications Acetaminophen (Acetaminophen 325 Mg Tablet) 650 mg PO Q6H PRN PRN Reason: Fever >101.5 Stop: 11/13/25 18:14 Acetaminophen (Acetaminophen 325 Mg Tablet) 650 mg PO Q6H PRN PRN Reason: PAIN SCALE 1-3 (mild Stop: 11/13/25 18:14 Hydrocodone Bitart/Acetaminophen (Hydrocodone/Apap 5/325 Tablet) 1 tab PO Q4HR PRN PRN Reason: PAIN SCALE 4-6 (Moderate Stop: 10/19/25 18:14 Aspirin (Aspirin Ec 81 Mg Tabec) 81 mg PO X1 ONE Stop: 10/15/25 06:16 Dextrose (Dextrose 50%-Water Inj 50 Ml Syringe) 25 ml IV Q15MIN PRN PRN Reason: BG 50-70 responsive npo pt Stop: 11/13/25 18:34 Dextrose (Dextrose 50%-Water Inj 50 Ml Syringe) 50 ml IV Q15MIN PRN PRN Reason: BG <50 OR BG <70 & pt unresponsive Stop: 11/13/25 18:34 Glucagon (Glucagon Inj 1 Mg Vial) 1 mg IM Q15MIN PRN PRN Reason: BG <70, and no IV access Insulin Human Lispro (Insulin Lispro (Admelog) 1 Unit/0.01 Ml Unit) 0 unit SC ACHS [facility]; Protocol Stop: 11/13/25 20:59 Losartan Potassium (Losartan Potassium 25 Mg Tablet) 50 mg PO QDAY PRABHJOT Stop: 11/13/25 18:29 Last Admin: 10/14/25 18:47 Dose: 50 mg Discontinued Medications Aspirin (Aspirin 325 Mg Tablet) 325 mg PO X1 ONE Stop: 10/14/25 17:08 Last Admin: 10/14/25 17:47 Dose: 325 mg Atorvastatin Calcium (Atorvastatin Calcium 10 Mg Tablet) 40 mg PO X1 ONE Stop: 10/14/25 18:23 Last Admin: 10/14/25 18:46 Dose: 40 mg Sodium Chloride (Ns) 1,000 mls @ 999 mls/hr IV .Q1H1M ONE Stop: 10/14/25 10:41 Last Infusion: 10/14/25 11:12 Dose: Infused Assessment & Plan Plan 79-year-old female with past medical history of hypertension, type 2 diabetes, asthma, hypercholesterolemia, and CKD stage 3b, presented to ED 10/14/2025 due to an episode of chest pain. The chest pain started this morning while she was sitting on a chair. The pain was 10 out of 10, intermittent, sharp, radiating to the back. At the time of chest pain, patient denied any symptoms of palpitations, shortness of breath, headaches, vision changes, or nausea and vomiting. The pain resolved on its own and fully resolved when she started to walk. Patient noted that this never happened before. She walks on a walker with limited mobility due to her hip condition, however she does not have any problems when she walks. She does have asthma and takes montelukast 10 mg once a day and Arnuity Ellipta 100 mcg inhaler once a day however she rarely needs to use albuterol inhaler. Currently the patient denies any chest pain, palpitations, or shortness of breath. Patient was admitted and cardiology consulted on 10/14/2025 for further assessment of ACS rule out and management of sinus bradycardia. # Chest pain-rule out ACS # Elevated troponins - NSTEMI type I vs Type 2 -Patient had 10/10 intermittent, sharp chest pain at rest, radiated to the back, that has resolved on its own and no chest pain when she tried to walk -EKG (10/14/2025): Showed sinus bradycardia -Troponin: <0.020 -> 0.069 -> 0.102-> 0.213 -FLORI score: 115 points: 7% probability of from admission to 6 months -FERDINAND score for UA/NSTEMI: 5 points, 26% risk of 14 days of all-cause mortality new or recurrent VA or severe recurrent ischemia requiring urgent revascularization -Heart score for Major Cardiac events: 4 points, moderate score, risk of mace 12-16% -CAD risk factors: hypercholesterlomia, HTN, T2DM, Physical inactivity, Family history, CKD stage 3b, Bilateral Lower Extremity Procedure in [facility] (Advised patient to bring the chart) -ECHO (10/14/2025) showed: 1. Left ventricle size is normal and systolic function is normal. Estimated ejection fraction is 60-65%. There is normal diastolic function. There is mild concentric remodeling noted. 2. Right ventricle chamber size is normal and systolic function is normal. Estimated RVSP is 27 mmHg. 3. Trace MR and TR. Mild MAC. Mild to moderate AV sclerosis without stenosis. 4. Normal IVC with estimated RA pressure 8 mmHg. Plan: -Based on patient's troponin level and chest pain sx, will consider doing Cardiac Cath tomorrow morning (10/15). If not, outpatient follow up for Stress test. -Trend troponin until downtrend. -Started on heparin gtt. continue for 48 hours -Continue daily aspirin 81 mg, loading aspirin 325 x 1 given -Atorvastatin 40mg HS -On Losartan 50mg po qd -Consider low-dose beta-suraj if blood pressure permissible -Obtain hemoglobin A1c and TSH in morning -Nitroglycerin patch prn #HTN uncontrolled #Sinus Bradycardia -At time of examination (10/14), patient's BP was 167/65 with HR 49, RR:22 -EKG (10/14/2025): Showed sinus bradycardia -Patient's home BP med: Metoprolol ER succinate 100 mg p.o. daily, Losartan 100 mg p.o. daily, Chlorthalidone 50 mg p.o. daily, Nifedipine 30 mg p.o. daily -When asked to stand up and move, her HR increased to 70s Plan -On Nifedipine 60mg po qd, Losartan 50mg po qd -Resume her home med as needed. #Leg Swelling # Bilateral lower extremity procedures-rule out PAD versus venous disease -+2 pitting edema on RLE, +1 pitting edema on LLE. -Denies any symptoms of dyspnea, Orthopnea, or PND. -BNP: 125 -Patient received Bilateral Lower Extremity Procedure in [employer] [place] (Advised patient to bring the chart) based on her maintenance instructor recommendations. Will review her chart once it arrives to the hospital -Patient does have hx of CKD stage 3b Plan: -Was given IV Lasix 20mg x1 (on 10/14) -Continue to monitor and start diuresis based on her symptoms. #Hx of Hypercholesterolmia -Patient was on Atorvastatin 10mg po qd as her home med -Patient noted she had high cholesterol level in the past Plan: -Follow up with lipid panel in the morning. -On Atorvastatin 40mg po HS #Asthma #CKD stage 3b #Type 2 Diabetes Mellitus -Management per Primary Hospitalist team Thank you for allowing us to participate in the care of Ms Anju Carmen. Cardiology will continue to follow. Assessment and plan discussed with my attending physician Dr. Eloise Romo (PGY-1) - Internal medicine resident Attending Provider Attestation/Addendum I have personally seen and examined the patient separately on the above date of service and discussed the plan of care with the resident. I reviewed the resident Dr. Killian Romo consultation progress note and agree with the resident findings and plan in the note above and have also edited the documentation to reflect my findings and plan. A 79-year-old female with a past medical history of essential hypertension, type 2 diabetes mellitus with complications including diabetic nephropathy, diabetic neuropathy, CKD stage IIIb with baseline creatinine of 1.4-1.5, questionable peripheral arterial disease s/p intervention to bilateral lower extremities versus venous disease treatment 4 to 5 years ago, hyperlipidemia, asthma, obesity, osteoarthritis presented to the emergency department for further evaluation of chest pain. Patient apparently was sitting in a chair this morning when she started experiencing 10 out of 10 chest pain which was sharp radiating to the back and lasted for around 10 to 15 minutes and after that she had intermittent chest pains which last around 5 minutes and she had a total of 4-5 of these episodes patient had a chest pain while at rest and had no aggravating or relieving factors and resolved on its own and actually improved with her moving around with a walker. Denies any kind of palpitation shortness of breath orthopnea PND dizziness or syncope or fall. She does have bilateral leg swelling chronically but appears to be slightly increased at the present point of time. Never had any similar episodes in the past. Otherwise denies any kind of smoking alcohol or drug history. 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 Family history significant for father with heart attack in the age of 80s and brother with open heart surgery in his 60s and mother had cancer. Patient also endorses possible PAD history with interventions done on bilateral lower extremities few years ago after being referred by the maintenance instructor here in [place]. In the emergency department patient was noted to be hypertensive, bradycardic in the 50s and in the high 40s. Initial troponin was negative but the repeat troponins continue to rise doubling up each time and hence cardiology was consulted for further evaluation. EKG reviewed and showed sinus bradycardia versus junctional bradycardia without any evidence of any acute ST-T changes suggestive of any ischemia. On examination patient is able to have a 6 systolic murmur at aortic area as well as around 2+ leg swelling on the right and 1+ leg swelling on the left. Rest of the labs showed CKD with a creatinine of 1.4 with mild anemia at baseline mild elevation of alk phos at 134, BNP 05/17/2025. Free TSH T4 normal. Chest x-ray without any acute pathology or any pulmonary venous congestion. Patient presented with chest pain which is both typical and atypical features. Chest pain occurred at rest and actually had no relieving factors and improved a little with walking. Central substernal and 10 out of 10 intensity lasting 10 to 15 minutes. EKG without any acute ST-T changes but troponin is mildly increasing to 0.1 and continues to rise. Patient does have significant risk factors including hypertension hyperlipidemia diabetes mellitus with complications, obesity, family history of heart disease as well as history of possible PAD. Patient is at high risk for CAD and will need to rule out ACS could be NSTEMI type II more than NSTEMI type I. If troponins continues to rise then patient will need further ischemic evaluation as inpatient with left heart cardiac catheterization which was discussed with the patient. If the troponins do not increase significantly and patient does not have any further chest pain episodes then further ischemic workup can be completed as outpatient. Check echo to rule out any kind of LV regional wall motion abnormalities, check LV function and RV function as well as diastolic function. Aspirin 325 mg once, aspirin 81 mg once daily, high intensity statin Lipitor 40 mg once daily, beta-suraj for now. Heparin drip for anticoagulation for the NSTEMI. Check TSH A1c and lipid profile for further cardiac risk stratification. Keep patient n.p.o. after midnight if troponin continues to rise and will plan for a cardiac catheterization in the morning. Blood pressure continues to be elevated on admission. He is on home metoprolol XL, losartan as well as nifedipine and will stop the metoprolol XL completely and start the patient on Coreg 6.25 mg twice daily along with losartan 100 as well as nifedipine 30 mg once daily and continue to uptitrate the same. Bradycardia patient heart rate is between 45 and 55 beats per minutes while resting or lying down on the bed. Patient does have good chronotropic response as the heart rate increases to the 60s'when she stands up or with activity. Continue beta-suraj for now and continue telemetry monitoring. Keep potassium greater than 4 magnesium greater than 2.0 at all times. Please obtain procedure report from [place] where she had her bilateral lower extremity procedures almost 4 years ago. Will need to rule out PAD versus bilateral lower extremity venous disease. Hugo Navas M.D. Interventional Cardiology
[2025-10-14] MEDS: HEPARIN SOD INJ 5000 UNIT/ML VIAL 4000 UNIT IV (19:32)
[2025-10-14] MEDS: Heparin/D5w 25K 250 ML Ivpb 25,000 UNIT/250 ML BAG 10.668 UNIT IV (19:33)
[2025-10-14] MEDS: FUROSEMIDE INJ 10 MG/ML 4ML VIAL 20 MG IVP (20:02)
[2025-10-14] MEDS: DEXTROSE 50%-WATER INJ 50 ML SYRINGE 25 ML IV (20:08)
[2025-10-14 20:09] LABS: Troponin I 0.213 ng/mL (0.0-0.045)
[2025-10-14 23:17] LABS: Troponin I 0.226 ng/mL (0.0-0.045)
[2025-10-15] VITALS (10 sets, daily range): BP systolic 110–153; BP diastolic 53–79; PULSE 50–105; RESP 12–24; TEMP 35.9–36.6; O2SAT 94–97; BMI 35.6
[2025-10-15 02:46] LABS: INR 1.1 (0.9-1.3); Partial Thromboplastin Time 66.6 Seconds (22.0-36.0); Prothrombin Time 11.2 Seconds (9.0-12.2)
[2025-10-15] MEDS: ASPIRIN EC 81 MG TABEC PO (05:27)
[2025-10-15 06:17] LABS: Basophils # (Auto) 0.1 Thou/mm3 (0.0-0.2); Basophils % (Auto) 1 % (0-2.5); Eosinophils # (Auto) 0.3 Thou/mm3 (0.0-0.5); Eosinophils % (Auto) 6 % (0-10); Hematocrit 35.2 % (36.0-46.0); Hemoglobin 10.9 g/dL (12.0-16.0); Immature Granulocytes Auto 0.01 Thou/mm3 (0.00-0.00); Lymphocytes # (Auto) 1.9 Thou/mm3 (1.0-4.8); Lymphocytes % (Auto) 32 % (10-50); Mean Corpuscular HGB Conc 31.0 g/dl (31.0-37.0); Mean Corpuscular Hemoglobin 29.2 pg (25.0-35.0); Mean Corpuscular Volume 94 fL (80-100); Monocytes # (Auto) 0.5 Thou/mm3 (0.0-0.8); Monocytes % (Auto) 8 % (0-12); Neutrophils # (Auto) 3.1 Thou/mm3 (1.8-7.7); Neutrophils % (Auto) 53 % (37-80); Nucleated Red Blood Cell # 0.00 Thou/mm3 (0.00-0.00); Nucleated Red Blood Cell % 0 /100 WBC (0); Platelet Count 139 Thou/mm3 (140-440); RDW Standard Deviation 45.6 fL (36.4-46.3); Red Blood Count 3.73 Miln/mm3 (4.00-5.20); White Blood Count 5.8 Thou/mm3 (3.6-11.0)
[2025-10-15 06:46] LABS: Glucose Estimated Average 143 mg/dL (80-131); Hemoglobin A1C 6.6 % Hgb (4.8-6.0)
[2025-10-15 06:53] LABS: Alanine Aminotransferase 9 U/L (10-49); Albumin, Serum 3.7 gm/dL (3.4-4.8); Albumin/Globulin Ratio 1.3 (1.2-2.2); Alkaline Phosphatase 109 U/L (46-116); Anion Gap 13 (7-16); Aspartate Amino Transferase 14 U/L (0-34); BUN/Creatinine Ratio 18 Ratio (12-20); Bilirubin,Total 0.3 mg/dL (0.3-1.2); Blood Urea Nitrogen 22 mg/dL (9-23); Calcium 8.7 mg/dL (8.3-10.6); Calcium (Corrected) 8.9 mg/dL (8.5-10.1); Carbon Dioxide 21.5 mMol/L (20.0-31.0); Cardiac Risk Estimate 3.1 RATIO (3.7-5.6); Chloride 113 mMol/L (98-107); Cholesterol 109 mg/dL (132-200); Creatinine (Component) 1.2 mg/dL (0.6-1.3); Estimated Creatinine Clearance 39.2 mL/min (>60); Globulin 2.9 gm/dL (2.3-3.5); Glucose 109 mg/dL (74-106); HDL Cholesterol 35 mg/dL (40-60); LDL Cholesterol,Calculated 52 mg/dL (0-130); Magnesium 1.9 mg/dL (1.6-2.6); Osmolality,Calculated 296 (275-295); Phosphorous 4.3 mg/dL (2.4-5.1); Potassium 4.2 mMol/L (3.4-5.1); Sodium 147 mMol/L (136-145); Thyroid Stimulating Hormone 1.65 uIU/mL (0.55-4.78); Total Protein 6.6 gm/dL (5.7-8.2); Triglycerides 112 mg/dL (30-150); eGFR 46 See Note
[2025-10-15] MEDS: LOSARTAN POTASSIUM 25 MG TABLET 100 MG PO (08:14)
[2025-10-15] MEDS: NIFEdipine XL 30 MG TABCR 60 MG PO (08:15)
--- NOTE | 2025-10-15 08:41 | PD.RESPRO ---
Documentation for date of: 10/15/25 Subjective Subjective Interval history: Patient seen and examined at bedside, denies any chest pain overnight. Troponins trended down to 0.136 Patient does have bilateral lower extremity edema, will give Lasix 40 mg x 1 Blood pressure well-controlled with Coreg 6.25 twice daily, losartan 100 mg daily and nifedipine 60 mg daily. Heart rate 50s noted, uptitrate nifedipine as needed for improved blood pressure control to 90 mg daily. Continue heparin drip for 24 hours, monitor for chest pain, will follow renal function with a.m. and will consider discharging patient on Lasix 40 mg daily. Iron panel obtained today shows iron 63, TIBC 283, saturation 22%, iron sat iron binding 220, ferritin 83, continue oral iron outpatient. Exam Vital Signs Temp Pulse Resp BP Pulse Ox O2 Del Method 97.2 F 52 L 19 151/79 H 97 Room Air 10/15/25 08:00 10/15/25 08:15 10/15/25 08:00 10/15/25 08:15 10/15/25 08:00 10/15/25 08:00 Narrative Exam General: No acute distress, well nourished, AAO x3 Eye: PERRL, EOMI, normal conjunctiva, no scleral icterus HENT: Normocephalic, atraumatic, hearing intact to conversation at normal volume, moist oral mucosa Neck: Supple, non-tender, no JVD, no lymphadenopathy Lungs: Non-labored respirations, symmetric chest rise, Clear to auscultate bilaterally, No wheezing, rhonchi, crackles Heart: Peripheral pulses intact bilaterally, sinus bradycardia. Abdomen: Soft, non-tender, non-distended, no palpable masses Musculoskeletal: Normal range of motion and strength, + 2 bilateral lower extremity edema. Skin: Skin is warm, dry, no rashes or lesions. Psychiatric: Cooperative, appropriate mood and affect, Awake and alert, not agitated Neuro: Cranial nerves II-XII grossly intact. Strength 5/5 throughout. Sensations intact to light touch. Objective Labs 10/15/25 05:30 10/15/25 05:30 Labs: Laboratory Results - last 24 hr 10/14/25 10/14/25 10/14/25 09:00 09:33 13:27 WBC 7.4 RBC 4.28 Hgb 12.6 Hct 40.4 MCV 94 MCH 29.4 MCHC 31.2 RDW Std Deviation 46.2 Plt Count 186 Neut % (Auto) 68 Lymph % (Auto) 22 [place] % (Auto) 6 Eos % (Auto) 4 Baso % (Auto) 1 Neut # (Auto) 5.0 Lymph # (Auto) 1.6 [place] # (Auto) 0.4 Eos # (Auto) 0.3 Baso # (Auto) 0.1 Immature Gran # (Auto) 0.02 H Absolute Nucleated RBC 0.00 Immature Gran % 0 Nucleated RBC % 0 PT 10.6 INR 1.0 APTT 27.2 Sodium 145 Potassium 4.6 Chloride 111 H Carbon Dioxide 23.1 Anion Gap 11 BUN 25 H Creatinine 1.4 H Estim Creat Clear Calc 33.8 L eGFR 38 L BUN/Creatinine Ratio [address] Glu mg/dL Hemoglobin A1c Calculated Osmolality 297 H Calcium 9.0 Corrected Calcium 9.0 Phosphorus Magnesium 2.1 Total Bilirubin 0.5 AST 15 ALT 11 Alkaline Phosphatase 134 H Troponin I < 0.020 0.069 H* B-Natriuretic Peptide 125 H Total Protein 7.7 Albumin 4.2 Globulin 3.5 Albumin/Globulin Ratio 1.2 Triglycerides Cholesterol LDL Cholesterol, Calc HDL Cholesterol Cholesterol/HDL Ratio TSH 1.58 Free T4 0.95 Ur Collection Type Clean Catch Urine Color Lt-Yellow Urine Clarity Clear Urine pH 6.0 Ur Specific [place] 1.022 Urine Protein Negative Urine Glucose (UA) 4+ A Urine Ketones Negative Urine Blood Negative Urine Nitrite Negative Urine Bilirubin Negative Urine Urobilinogen (Auto) Negative Ur Leukocyte Esterase Positive Urine RBC 2 Urine WBC 3 Ur Squamous Epith Cells 6 H Urine Bacteria None Ur Culture Indicated? Not Indicated 10/14/25 10/14/25 10/14/25 15:26 19:01 22:40 WBC RBC Hgb Hct MCV MCH MCHC RDW Std Deviation Plt Count Neut % (Auto) Lymph % (Auto) [place] % (Auto) Eos % (Auto) Baso % (Auto) Neut # (Auto) Lymph # (Auto) [place] # (Auto) Eos # (Auto) Baso # (Auto) Immature Gran # (Auto) Absolute Nucleated RBC Immature Gran % Nucleated RBC % PT INR APTT Sodium Potassium Chloride Carbon Dioxide Anion Gap BUN Creatinine Estim Creat Clear Calc eGFR BUN/Creatinine Ratio Glucose Estimated Ave Glu mg/dL Hemoglobin A1c Calculated Osmolality Calcium Corrected Calcium Phosphorus Magnesium Total Bilirubin AST ALT Alkaline Phosphatase Troponin I 0.102 H* 0.213 H* 0.226 H* B-Natriuretic Peptide Total Protein Albumin Globulin Albumin/Globulin Ratio Triglycerides Cholesterol LDL Cholesterol, Calc HDL Cholesterol Cholesterol/HDL Ratio TSH Free T4 Ur Collection Type Urine Color Urine Clarity Urine pH Ur Specific [place] Urine Protein Urine Glucose (UA) Urine Ketones Urine Blood Urine Nitrite Urine Bilirubin Urine Urobilinogen (Auto) Ur Leukocyte Esterase Urine RBC Urine WBC Ur Squamous Epith Cells Urine Bacteria Ur Culture Indicated? 10/15/25 10/15/25 01:52 05:30 WBC 5.8 RBC 3.73 L Hgb 10.9 L Hct 35.2 L MCV 94 MCH 29.2 MCHC 31.0 RDW Std Deviation 45.6 Plt Count 139 L D Neut % (Auto) 53 Lymph % (Auto) 32 [place] % (Auto) 8 Eos % (Auto) 6 Baso % (Auto) 1 Neut # (Auto) 3.1 Lymph # (Auto) 1.9 [place] # (Auto) 0.5 Eos # (Auto) 0.3 Baso # (Auto) 0.1 Immature Gran # (Auto) 0.01 H Absolute Nucleated RBC 0.00 Immature Gran % 0 Nucleated RBC % 0 PT 11.2 INR 1.1 APTT 66.6 H D Sodium 147 H Potassium 4.2 Chloride 113 H Carbon Dioxide 21.5 Anion Gap 13 BUN 22 Creatinine 1.2 Estim Creat Clear Calc 39.2 L eGFR 46 L BUN/Creatinine Ratio 18 Glucose [address] Glu mg/dL 143 H Hemoglobin A1c 6.6 H Calculated Osmolality 296 H Calcium 8.7 Corrected Calcium 8.9 Phosphorus 4.3 Magnesium 1.9 Total Bilirubin 0.3 AST 14 ALT 9 L Alkaline Phosphatase 109 D Troponin I B-Natriuretic Peptide Total Protein 6.6 Albumin 3.7 D Globulin 2.9 Albumin/Globulin Ratio 1.3 Triglycerides 112 Cholesterol 109 L LDL Cholesterol, Calc 52 HDL Cholesterol 35 L Cholesterol/HDL Ratio 3.1 L TSH 1.65 Free T4 Ur Collection Type Urine Color Urine Clarity Urine pH Ur Specific [place] Urine Protein Urine Glucose (UA) Urine Ketones Urine Blood Urine Nitrite Urine Bilirubin Urine Urobilinogen (Auto) Ur Leukocyte Esterase Urine RBC Urine WBC Ur Squamous Epith Cells Urine Bacteria Ur Culture Indicated? Quality Measures Quality Measures none Advance care planning discussed with:: patient and child Assessment & Plan Assessment Current Active Medications: Generic Name Dose Route Start Last Admin Trade Name Freq PRN Reason Stop Dose Admin Acetaminophen 650 mg 10/14/25 18:15 Acetaminophen 325 Mg Tablet PO 11/13/25 18:14 Q6H PRN Fever >101.5 Acetaminophen 650 mg 10/14/25 18:15 Acetaminophen 325 Mg Tablet PO 11/13/25 18:14 Q6H PRN PAIN SCALE 1-3 (mild Hydrocodone Bitart/Acetaminophen 1 tab 10/14/25 18:15 Hydrocodone/Apap 5/325 Tablet PO 10/19/25 18:14 Q4HR PRN PAIN SCALE 4-6 (Moderate Aspirin 81 mg 10/15/25 09:00 10/15/25 08:31 Aspirin Ec 81 Mg [place] PO 11/14/25 08:59 Not Given QDAY PRABHJOT Atorvastatin Calcium 40 mg 10/15/25 21:00 Atorvastatin Calcium 20 Mg Tablet PO 11/14/25 20:59 HS PRBAHJOT Carvedilol 6.25 mg 10/14/25 21:40 10/15/25 08:15 Carvedilol 3.125 Mg Tablet PO 11/13/25 21:39 6.25 mg BIDWM PRABHJOT Administration Dextrose 25 ml 10/14/25 18:35 10/14/25 20:08 Dextrose 50%-Water Inj 50 Ml Syringe IV 11/13/25 18:34 25 ml Q15MIN PRN Administration BG 50-70 responsive npo pt Dextrose 50 ml 10/14/25 18:35 Dextrose 50%-Water Inj 50 Ml Syringe IV 11/13/25 18:34 Q15MIN PRN BG <50 OR BG <70 & pt unresponsive Glucagon 1 mg 10/14/25 18:35 Glucagon Inj 1 Mg Vial IM Q15MIN PRN BG <70, and no IV access Heparin Sodium/Dextrose 25,000 unit in 250 mls @ 10.668 mls/hr 10/14/25 19:00 10/15/25 06:54 Heparin In D5w Ivpb IV 10/28/25 18:59 12 units/kg/hr .[id number] PRABHJOT 10.668 mls/hr Protocol Titration 12 UNITS/KG/HR Insulin Human Lispro 0 unit 10/15/25 12:00 Insulin Lispro (Admelog) 1 Unit/0.01 Ml Unit SC 11/14/25 11:59 Q6HR [facility] Protocol Losartan Potassium 100 mg 10/15/25 09:00 10/15/25 08:14 Losartan Potassium 25 Mg Tablet PO 11/14/25 08:59 100 mg QDAY PRABHJOT Administration Nifedipine 60 mg 10/14/25 19:45 10/15/25 08:15 Nifedipine Xl 30 Mg Tabcr PO 11/13/25 19:44 60 mg QDAY PRABHJOT Administration Nitroglycerin 0.4 mg 10/14/25 19:34 Nitroglycerin 0.4 Mg/Hr Patch.Td24 TOP 11/13/25 19:33 X1 PRN chest pain Plan Assessment and plan: Summary: Mr. Carmen is a 79-year-old female with past medical history of type 2 diabetes mellitus with diabetic nephropathy and neuropathy, hypertension, hyperlipidemia, obesity, osteoarthritis asthma, hypercholesterolemia, CKD stage IIIb (follows Dr. Gillespie) and questionable peripheral arterial disease versus venous disease who presented to [facility] emergency department on October 14, 2025 with a chief complaint of chest pain. Cardiology consulted for ACS workup: NSTEMI type I versus type II. #ACS ruled out?NSTEMI type II more likely versus type I less likely #Cardiac chest pain #Elevated troponin Patient reported that she was doing her morning chores after which she sat on chair to watch television when she experienced 10/10 sharp chest pain radiating to her back reported that the pain lasted for around 10 to 15 minutes after which she had intermittent chest pains lasting for about 5 minutes with a total of 4-5 episodes, chest pain while at rest, no aggravating or relieving factors noted, patient's chest pain resolved on its own and improved as she walked with a walker. She denies any diaphoresis, palpitations, shortness of breath, orthopnea, dizziness, falls, syncope. EKG 10/14/2025: Sinus bradycardia, rate [address]-T changes, Q waves noted lead V3 V4 Troponin downtrending: <0.020 -> 0.069 -> 0.102-> 0.213->0.136 CAD risk factors: Hypertension, hyperlipidemia, type 2 diabetes mellitus with complications, obesity, family history Hemoglobin A1c 6.6, triglyceride 112, cholesterol 109, LDL 52, HDL 35, TSH 1.65 -FLORI score: 115 points: 7% probability of from admission to 6 months -FERDINAND score for UA/NSTEMI: 5 points, 26% risk of 14 days of all-cause mortality new or recurrent [place] or severe recurrent ischemia requiring urgent revascularization -Heart score for Major Cardiac events: 4 points, moderate score, risk of mace 12-16% Echocardiogram 10/15/2025: 1. Left ventricle size is normal and systolic function is normal. Estimated ejection fraction is 60-65%. There is normal diastolic function. There is mild concentric remodeling noted. 2. Right ventricle chamber size is normal and systolic function is normal. Estimated RVSP is 27 mmHg. 3. Trace MR and TR. Mild MAC. Mild to moderate AV sclerosis without stenosis. 4. Normal IVC with estimated RA pressure 8 mmHg. Recommendations: -Continue heparin GTT for 24 hours -Continue daily aspirin, discharged on aspirin 81 mg daily -Patient currently does not have any symptoms troponins flat at 0.213-0.226, likely NSTEMI type II in setting of diastolic heart failure - Patient will need outpatient workup, stress test and Holter monitoring outpatient. - Monitor today for chest pain, will consider cardiac catheterization if patient develops chest pain/new symptoms. #New onset diastolic heart failure with preserved ejection fraction, EF 60 to 65% Patient had 3+ bilateral lower extremity edema, chest x-ray negative for vascular congestion, BNP 125 on presentation Ejection fraction 60 to 65% on echocardiogram, LVH noted with concentric remodeling, diastolic function could not be graded on this echocardiogram, considering clinical findings patient does have diastolic heart failure. Recommendations: - Was given Lasix 20 mg IV x 1 yesterday, continue diuresis, will give Lasix 40 mg IV x 1 today. - Will follow renal function with a.m., strict TERI, daily weight, fluid restriction 1500 cc and low-sodium diet - Iron panel reviewed, continue outpatient oral iron - Keep potassium greater than 4 and magnesium greater than 2 at all times #Hypertension Blood pressure well-controlled with Coreg 6.25 twice daily, losartan 100 mg daily and nifedipine 60 mg daily. Heart rate 50s noted, uptitrate nifedipine as needed for improved blood pressure control to 90 mg daily. #Sinus bradycardia EKG on presentation shows sinus bradycardia patient denies any dizziness lightheadedness or other symptoms. Patient has good chronotropic response -Will need outpatient Holter monitoring. #?Peripheral arterial disease History of PAD, possible procedure done outpatient in [place] - Outpatient workup #Dyslipidemia Triglyceride 112, cholesterol 109, LDL 52, HDL 35 - Continue atorvastatin 40 mg #Asthma #CKD stage IIIb #Type 2 diabetes mellitus #Osteoarthritis -Management per primary team Thank you for the consult and allowing to participate in the care of the patient. Cardiology will continue to follow. Case discussed with Attending Physician Dr. Hugo Feliciano MD Internal Medicine PGY-2 Disclaimer: This note was dictated by speech recognition. Minor errors in tax accounting manager may be present due to voice recognition software. Attending Provider Attestation/Addendum I have personally seen and examined the patient separately on the above date of service and discussed the plan of care with the resident. I reviewed the resident Dr. Eh Feliciano consultation progress note and agree with the resident findings and plan in the note above and have also edited the documentation to reflect my findings and plan. Hugo Navas M.D. Interventional Cardiology
--- NOTE | 2025-10-15 09:14 | ESPR_ITS ---
<Statement entered by Marsha Cash MD - 10/15/25 16:57> Patient was seen and examined by me personally. I have directly supervised and reviewed documentation by the team resident and agree with its findings with any exceptions or additional findings as below. Plan of care was discussed with the attending, Dr. Stephens. Patient seen at bedside in telemetry, reports no further episodes of chest pain since the admission. Per cardiology, patient is to follow up outpatient and no need for emergent cardiac cath. Troponin peaked at 0.226 overnight and downtrended. Continue on aspirin and atorvastatin. Continue heparin drip for 24 hours per cardiology and patient will be cleared for discharge home likely tomorrow. Patient on examination does have bilateral lower extremity pitting edema of 3+, states that she has had this since some vascular procedure. She reports that she follows vascular and has been told she has PAD. Echo had shown 60-65% with mild concentric remodeling, suspected mild diastolic heart failure according to Cardiology team who gave Lasix dose yesterday and today, considering discharging on 40 mg qday, and discontinuing chlorthalidone. Marsha Cash, PGY-3 Documentation for date of: 10/15/25 Subjective Subjective Interval history: Patient was seen and examined at bedside; no acute events overnight. Patient reports no pain, shortness of breath, or other symptoms. Per cardiology, will not cath. Exam Vital Signs Temp Pulse Resp BP Pulse Ox O2 Del Method 97.2 F 52 L 19 151/79 H 97 Room Air 10/15/25 08:00 10/15/25 08:15 10/15/25 08:00 10/15/25 08:15 10/15/25 08:00 10/15/25 08:00 Narrative Exam General: A/O x3, no acute distress, well-nourished, well-developed Eyes: PERRL, EOMI. Anicteric, vision grossly intact. Ears: No ear pain, no ear discharge, Hearing grossly intact. Nose: No nasal discharge. Mouth/Throat: Moist mucous membranes, no redness, no lesions. Neck: Neck supple, non-tender, no cervical lymphadenopathy. Lungs: Clear KENNY to auscultation and percussion, No accessory muscle use. Cardio: Normal S1/S2, regular rhythm, no murmurs, no JVD or carotid bruits. Abdomen: Soft, non-tender, no palpable masses, peristalsis present, no guarding or rebound. Extremities: Symmetrical, no significant deformities, 2+ peripheral edema RLE, non-tender, peripheral pulses present. Skin: No rashes, no lesions, warm to touch. Neuro: No focal neurological deficits. Psych: Cooperative, appropriate mood and effect. Objective Labs 10/15/25 05:30 10/15/25 05:30 Labs: Laboratory Results - last 24 hr 10/14/25 10/14/25 10/14/25 09:00 09:33 13:27 WBC 7.4 RBC 4.28 Hgb 12.6 Hct 40.4 MCV 94 MCH 29.4 MCHC 31.2 RDW Std Deviation 46.2 Plt Count 186 Neut % (Auto) 68 Lymph % (Auto) 22 [place] % (Auto) 6 Eos % (Auto) 4 Baso % (Auto) 1 Neut # (Auto) 5.0 Lymph # (Auto) 1.6 Mccormick # (Auto) 0.4 Eos # (Auto) 0.3 Baso # (Auto) 0.1 Immature Gran # (Auto) 0.02 H Absolute Nucleated RBC 0.00 Immature Gran % 0 Nucleated RBC % 0 PT 10.6 INR 1.0 APTT 27.2 Sodium 145 Potassium 4.6 Chloride 111 H Carbon Dioxide 23.1 Anion Gap 11 BUN 25 H Creatinine 1.4 H Estim Creat Clear Calc 33.8 L eGFR 38 L BUN/Creatinine Ratio [address]ucose [address] Glu mg/dL Hemoglobin A1c Calculated Osmolality 297 H Calcium 9.0 Corrected Calcium 9.0 Phosphorus Magnesium 2.1 Total Bilirubin 0.5 AST 15 ALT 11 Alkaline Phosphatase 134 H Troponin I < 0.020 0.069 H* B-Natriuretic Peptide 125 H Total Protein 7.7 Albumin 4.2 Globulin 3.5 Albumin/Globulin Ratio 1.2 Triglycerides Cholesterol LDL Cholesterol, Calc HDL Cholesterol Cholesterol/HDL Ratio TSH 1.58 Free T4 0.95 Ur Collection Type Clean Catch Urine Color Lt-Yellow Urine Clarity Clear Urine pH 6.0 Ur Specific Causey 1.022 Urine Protein Negative Urine Glucose (UA) 4+ A Urine Ketones Negative Urine Blood Negative Urine Nitrite Negative Urine Bilirubin Negative Urine Urobilinogen (Auto) Negative Ur Leukocyte Esterase Positive Urine RBC 2 Urine WBC 3 Ur Squamous Epith Cells 6 H Urine Bacteria None Ur Culture Indicated? Not Indicated 12/10/14/25 10/14/25 15:26 19:01 22:40 WBC RBC Hgb Hct MCV MCH MCHC RDW Std Deviation Plt Count Neut % (Auto) Lymph % (Auto) [place] % (Auto) Eos % (Auto) Baso % (Auto) Neut # (Auto) Lymph # (Auto) [place] # (Auto) Eos # (Auto) Baso # (Auto) Immature Gran # (Auto) Absolute Nucleated RBC Immature Gran % Nucleated RBC % PT INR APTT Sodium Potassium Chloride Carbon Dioxide Anion Gap BUN Creatinine Estim Creat Clear Calc eGFR BUN/Creatinine Ratio Glucose Estimated Ave Glu mg/dL Hemoglobin A1c Calculated Osmolality Calcium Corrected Calcium Phosphorus Magnesium Total Bilirubin AST ALT Alkaline Phosphatase Troponin I 0.102 H* 0.213 H* 0.226 H* B-Natriuretic Peptide Total Protein Albumin Globulin Albumin/Globulin Ratio Triglycerides Cholesterol LDL Cholesterol, Calc HDL Cholesterol Cholesterol/HDL Ratio TSH Free T4 Ur Collection Type Urine Color Urine Clarity Urine pH Ur Specific Causey Urine Protein Urine Glucose (UA) Urine Ketones Urine Blood Urine Nitrite Urine Bilirubin Urine Urobilinogen (Auto) Ur Leukocyte Esterase Urine RBC Urine WBC Ur Squamous Epith Cells Urine Bacteria Ur Culture Indicated? 10/15/25 10/15/25 01:52 05:30 WBC 5.8 RBC 3.73 L Hgb 10.9 L Hct 35.2 L MCV 94 MCH 29.2 MCHC 31.0 RDW Std Deviation 45.6 Plt Count 139 L D Neut % (Auto) 53 Lymph % (Auto) 32 M[place]ormick % (Auto) 8 Eos % (Auto) 6 Baso % (Auto) 1 Neut # (Auto) 3.1 Lymph # (Auto) 1.9 M[place]ormick # (Auto) 0.5 Eos # (Auto) 0.3 Baso # (Auto) 0.1 Immature Gran # (Auto) 0.01 H Absolute Nucleated RBC 0.00 Immature Gran % 0 Nucleated RBC % 0 PT 11.2 INR 1.1 APTT 66.6 H D Sodium 147 H Potassium 4.2 Chloride 113 H Carbon Dioxide 21.5 Anion Gap 13 BUN 22 Creatinine 1.2 Estim Creat Clear Calc 39.2 L eGFR 46 L BUN/Creatinine Ratio 18 Glucose [address] Glu mg/dL 143 H Hemoglobin A1c 6.6 H Calculated Osmolality 296 H Calcium 8.7 Corrected Calcium 8.9 Phosphorus 4.3 Magnesium 1.9 Total Bilirubin 0.3 AST 14 ALT 9 L Alkaline Phosphatase 109 D Troponin I B-Natriuretic Peptide Total Protein 6.6 Albumin 3.7 D Globulin 2.9 Albumin/Globulin Ratio 1.3 Triglycerides 112 Cholesterol 109 L LDL Cholesterol, Calc 52 HDL Cholesterol 35 L Cholesterol/HDL Ratio 3.1 L TSH 1.65 Free T4 Ur Collection Type Urine Color Urine Clarity Urine pH Ur Specific Causey Urine Protein Urine Glucose (UA) Urine Ketones Urine Blood Urine Nitrite Urine Bilirubin Urine Urobilinogen (Auto) Ur Leukocyte Esterase Urine RBC Urine WBC Ur Squamous Epith Cells Urine Bacteria Ur Culture Indicated? Quality Measures Quality Measures none Advance care planning discussed with:: other Assessment & Plan Assessment Current Active Medications: Generic Name Dose Route Start Last Admin Trade Name Freq PRN Reason Stop Dose Admin Acetaminophen 650 mg 10/14/25 18:15 Acetaminophen 325 Mg Tablet PO 11/13/25 18:14 Q6H PRN Fever >101.5 Acetaminophen 650 mg 10/14/25 18:15 Acetaminophen 325 Mg Tablet PO 11/13/25 18:14 Q6H PRN PAIN SCALE 1-3 (mild Hydrocodone Bitart/Acetaminophen 1 tab 10/14/25 18:15 Hydrocodone/Apap 5/325 Tablet PO 10/19/25 18:14 Q4HR PRN PAIN SCALE 4-6 (Moderate Aspirin 81 mg 10/15/25 09:00 10/15/25 08:31 Aspirin Ec 81 Mg Tabec PO 11/14/25 08:59 Not Given QDAY PRABHJOT Atorvastatin Calcium 40 mg 10/15/25 21:00 Atorvastatin Calcium 20 Mg Tablet PO 11/14/25 20:59 HS PRABHJOT Carvedilol 6.25 mg 10/14/25 21:40 10/15/25 08:15 Carvedilol 3.125 Mg Tablet PO 11/13/25 21:39 6.25 mg BIDWM PRABHJOT Administration Dextrose 25 ml 10/14/25 18:35 10/14/25 20:08 Dextrose 50%-Water Inj 50 Ml Syringe IV 11/13/25 18:34 25 ml Q15MIN PRN Administration BG 50-70 responsive npo pt Dextrose 50 ml 10/14/25 18:35 Dextrose 50%-Water Inj 50 Ml Syringe IV 11/13/25 18:34 Q15MIN PRN BG <50 OR BG <70 & pt unresponsive Glucagon 1 mg 10/14/25 18:35 Glucagon Inj 1 Mg Vial IM Q15MIN PRN BG <70, and no IV access Heparin Sodium/Dextrose 25,000 unit in 250 mls @ 10.668 mls/hr 10/14/25 19:00 10/15/25 06:54 Heparin In D5w Ivpb IV 10/28/25 18:59 12 units/kg/hr .[id number] PRABHJOT 10.668 mls/hr Protocol Titration 12 UNITS/KG/HR Insulin Human Lispro 0 unit 10/15/25 12:00 Insulin Lispro (Admelog) 1 Unit/0.01 Ml Unit SC 11/14/25 11:59 Q6HR PRABHJOT Protocol Losartan Potassium 100 mg 10/15/25 09:00 10/15/25 08:14 Losartan Potassium 25 Mg Tablet PO 11/14/25 08:59 100 mg QDAY PRABHJOT Administration Nifedipine 60 mg 10/14/25 19:45 10/15/25 08:15 Nifedipine Xl 30 Mg Tabcr PO 11/13/25 19:44 60 mg QDAY PRABHJOT Administration Nitroglycerin 0.4 mg 10/14/25 19:34 Nitroglycerin 0.4 Mg/Hr Patch.Td24 TOP 11/13/25 19:33 X1 PRN chest pain Plan Patient is a 79 yo F with PMH of HTN, HLD, IDDM, asthma presenting to ED on 10/14 with new-onset chest pain. Patient admitted for NSTEMI workup on 10/14. #Newly diagnosed HfPEF (60-65%) Presented with 1+ pitting edema vs venous insufficient in setting of previous vascular surgery Echo 10/15- EF 60-65%, normal diastolic function Plan: Lasix 40x1 10/15/25 Carvedilol 6.25 BID Losartan 100 daily 1800 fluid restriction, strict I/O K > 4, Mg > 2 Daily weight checks Cardiology following, Dr. Daugherty, appreciate recs #NSTEMI #Troponemia, likely cardiac #A-fib with SVR, resolved #ACS, ruled out Patient has new-onset chest pain starting at 7 AM this morning. Pain was stabbing (10 out of 10 max), episodic (improving with each episode) and improved with activity. Denies shortness of breath, orthopnea, nausea, vomiting, diarrhea, fever, chills, abdominal pain. Patient has never had similar pain before. Family history significant for father dying of [place]. Troponin uptrending < 0.02 on admission to 0.102; EKG shows A-fib with SVR. Echo shows normal EF (60-65%) and normal diastolic function. 10/14- latest troponin has not peaked 0.226, TSH 1.65, lower extremity doppler negative for DVT, Lipid panel shows cholesterol 109, HDL 35 10/15- troponin peaked Chadsvasc 6 FERDINAND score- 4 Plan: As above, plus Heparin drip Aspirin 81 (325 given in ED) Atorvastatin 40 Nitroglycerin patch 1x prn #IDDM Admission A1c 6.6 Plan: Monitor fasting glucose ISS step 1 #HTN Plan: See above plus nifedipine 60 qday #HLD Plan: See above Disposition: Tele DVT prophylaxis: Heparin drip GI prophylaxis: Diet: NPO Lines: PIV CODE STATUS: Full This case was discussed with my attending physician, Dr. Stephens, and senior resident, Dr. Cash. Matteo Shaw, PGY1 Attending Provider Attestation/Addendum Demi Quevedo, DO, attest that I was physically present for the river portions of the service and evaluated the patient with the resident and I reviewed and discussed the case with the resident and agree with the resident's findings and plans of care as documented above Patient seen and eval this a.m. She denies any active chest pain at this time. She states that her bilateral lower extremity edema is much improved. She was given Lasix 40 mg IV x 1 this a.m. She remains on heparin drip at this point. Troponin has peaked at 0.226. As per cardiology, continue with BP control. If edema is improved, anticipate DC within the next 24h. She continues to have 1+ pitting edema at this time. All questions and concerns addressed at bedside.
--- NOTE | 2025-10-15 09:15 | PC.SS ---
Update: Cardio cath is pending.
[2025-10-15] MEDS: FUROSEMIDE INJ 10 MG/ML 4ML VIAL 40 MG IVP (10:11)
--- NOTE | 2025-10-15 10:33 | PC.SS ---
LEAD AUDITOR conducted bedside contact with the patient conduct initial assessment and to discuss discharge planning.? Patient confirmed demographic information.? Patient resides at home with daughter, Delfina Brower .? Patient volunteers at local facility.? Patient does not utilize any form of DME to assist with ambulation.? Patient does not utilize home oxygen.? Patient describes the ability to complete ADL?s independently.? Patient identified daughter, Delfina Brower; as surrogate medical decision maker.? Patient?s PCP is MICHAEL Bolaños.? Patient does not participate with dialysis.? Patient does not possess any specialty providers.? Patient possesses history of diabetes, insulin dependent.? Patient utilizes [facility] for medication services.? Plan is for the patient to return home at the time of discharge.? Family will provide transportation on behalf of the patient.? No further discharge needs identified by the patient.? No further intervention required at this time, social services assistant will be available to address any further concerns.? Next of Kin: Delfina Manriqueztiz D/C Plan: Home
[2025-10-15 10:57] LABS: Ferritin 83 ng/mL (7.3-270.7); Iron 63 mcg/dL (50-170); Percent Iron Saturation 22 % (20-55); Total Iron Binding Capacity 283 mcg/dL (250-425); Unsaturated Iron Binding 220 (225-295)
[2025-10-15 11:01] LABS: Partial Thromboplastin Time 78.1 Seconds (22.0-36.0)
[2025-10-15 13:14] LABS: Troponin I 0.130 ng/mL (0.0-0.045)
[2025-10-15] MEDS: Heparin/D5w 25K 250 ML Ivpb 25,000 UNIT/250 ML BAG 10.668 UNIT IV (17:04)
[2025-10-15 18:48] LABS: Partial Thromboplastin Time 70.2 Seconds (22.0-36.0)
[2025-10-15] MEDS: ATORVASTATIN CALCIUM 20 MG TABLET 40 MG PO (20:11)
[2025-10-15] MEDS: INSULIN LISPRO (AdmeLOG) 1 UNIT/0.01 ML UNIT SC (20:11)
[2025-10-16] VITALS (7 sets, daily range): BP systolic 117–142; BP diastolic 50–82; PULSE 57–88; RESP 16–21; TEMP 36–36.6; O2SAT 92–98; BMI 34.7
[2025-10-16 01:16] LABS: Partial Thromboplastin Time 71.5 Seconds (22.0-36.0)
[2025-10-16 06:12] LABS: Basophils # (Auto) 0.0 Thou/mm3 (0.0-0.2); Basophils % (Auto) 1 % (0-2.5); Eosinophils # (Auto) 0.3 Thou/mm3 (0.0-0.5); Eosinophils % (Auto) 5 % (0-10); Hematocrit 34.1 % (36.0-46.0); Hemoglobin 10.8 g/dL (12.0-16.0); Immature Granulocytes Auto 0.02 Thou/mm3 (0.00-0.00); Lymphocytes # (Auto) 1.8 Thou/mm3 (1.0-4.8); Lymphocytes % (Auto) 28 % (10-50); Mean Corpuscular HGB Conc 31.7 g/dl (31.0-37.0); Mean Corpuscular Hemoglobin 29.8 pg (25.0-35.0); Mean Corpuscular Volume 94 fL (80-100); Monocytes # (Auto) 0.5 Thou/mm3 (0.0-0.8); Monocytes % (Auto) 8 % (0-12); Neutrophils # (Auto) 3.7 Thou/mm3 (1.8-7.7); Neutrophils % (Auto) 58 % (37-80); Nucleated Red Blood Cell # 0.00 Thou/mm3 (0.00-0.00); Nucleated Red Blood Cell % 0 /100 WBC (0); Platelet Count 138 Thou/mm3 (140-440); RDW Standard Deviation 46.3 fL (36.4-46.3); Red Blood Count 3.63 Miln/mm3 (4.00-5.20); White Blood Count 6.3 Thou/mm3 (3.6-11.0)
[2025-10-16 06:38] LABS: INR 1.0 (0.9-1.3); Partial Thromboplastin Time 71.2 Seconds (22.0-36.0); Prothrombin Time 11.0 Seconds (9.0-12.2)
[2025-10-16 06:47] LABS: Alanine Aminotransferase 7 U/L (10-49); Albumin, Serum 3.7 gm/dL (3.4-4.8); Albumin/Globulin Ratio 1.3 (1.2-2.2); Alkaline Phosphatase 109 U/L (46-116); Anion Gap 11 (7-16); Aspartate Amino Transferase 11 U/L (0-34); BUN/Creatinine Ratio 22 Ratio (12-20); Bilirubin,Total 0.3 mg/dL (0.3-1.2); Blood Urea Nitrogen 33 mg/dL (9-23); Calcium 8.6 mg/dL (8.3-10.6); Calcium (Corrected) 8.8 mg/dL (8.5-10.1); Carbon Dioxide 24.8 mMol/L (20.0-31.0); Chloride 110 mMol/L (98-107); Creatinine (Component) 1.5 mg/dL (0.6-1.3); Estimated Creatinine Clearance 31.0 mL/min (>60); Globulin 2.9 gm/dL (2.3-3.5); Glucose 164 mg/dL (74-106); Magnesium 2.0 mg/dL (1.6-2.6); Osmolality,Calculated 301 (275-295); Phosphorous 4.2 mg/dL (2.4-5.1); Potassium 4.4 mMol/L (3.4-5.1); Sodium 146 mMol/L (136-145); Total Protein 6.6 gm/dL (5.7-8.2); eGFR 35 See Note
[2025-10-16] MEDS: RINGERS LACTATED 1000 ML 500 ML 999 ML IV (08:07)
[2025-10-16] MEDS: LOSARTAN POTASSIUM 25 MG TABLET 100 MG PO (08:09)
[2025-10-16] MEDS: ASPIRIN EC 81 MG TABEC PO (08:10)
[2025-10-16] MEDS: NIFEdipine XL 30 MG TABCR 60 MG PO (08:10)
--- NOTE | 2025-10-16 08:37 | PD.RESPRO ---
Documentation for date of: 10/16/25 Subjective Subjective Interval history: Patient seen examined at bedside, lower extremity edema has improved. Labs and vitals reviewed, creatinine elevation at 1.5 noted, patient does have CKD, follows Dr. Gillespie outpatient, baseline creatinine 1.3?1.4, okay to hold diuretics for 2-3 days, stable to resume Lasix 20 mg daily p.o. after. Discontinue chlorthalidone. Recommend discharging patient on aspirin 81 mg daily, Coreg 6.25 mg twice daily, losartan 100 mg daily, nifedipine 60 mg daily. Follow-up outpatient in cardiology office in 1 week for further ischemia workup. Will schedule for Holter monitoring as well, as events of bradycardia noted on telemetry. Patient can repeat renal panel in 1 week, follow-up with nephrology outpatient. Exam Vital Signs Temp Pulse Resp BP Pulse Ox O2 Del Method 97.2 F 60 17 131/63 H 98 Room Air 10/16/25 08:00 10/16/25 08:10 10/16/25 08:00 10/16/25 08:10 10/16/25 08:00 10/16/25 08:00 Narrative Exam General: No acute distress, well nourished, AAO x3 Eye: PERRL, EOMI, normal conjunctiva, no scleral icterus HENT: Normocephalic, atraumatic, hearing intact to conversation at normal volume, moist oral mucosa Neck: Supple, non-tender, no JVD, no lymphadenopathy Lungs: Non-labored respirations, symmetric chest rise, Clear to auscultate bilaterally, No wheezing, rhonchi, crackles Heart: Peripheral pulses intact bilaterally, sinus bradycardia. Abdomen: Soft, non-tender, non-distended, no palpable masses Musculoskeletal: Normal range of motion and strength, +1 bilateral lower extremity edema. Skin: Skin is warm, dry, no rashes or lesions. Psychiatric: Cooperative, appropriate mood and affect, Awake and alert, not agitated Neuro: Cranial nerves II-XII grossly intact. Strength 5/5 throughout. Sensations intact to light touch. Objective Labs 10/16/25 05:39 10/16/25 05:39 Labs: Laboratory Results - last 24 hr 10/15/25 10/15/25 10/15/25 05:30 10:16 12:25 WBC RBC Hgb Hct MCV MCH MCHC RDW Std Deviation Plt Count Neut % (Auto) Lymph % (Auto) [place] % (Auto) Eos % (Auto) Baso % (Auto) Neut # (Auto) Lymph # (Auto) [place] # (Auto) Eos # (Auto) Baso # (Auto) Immature Gran # (Auto) Absolute Nucleated RBC Immature Gran % Nucleated RBC % PT INR APTT 78.1 H D Sodium Potassium Chloride Carbon Dioxide Anion Gap BUN Creatinine Estim Creat Clear Calc eGFR BUN/Creatinine Ratio Glucose Calculated Osmolality Calcium Corrected Calcium Phosphorus Magnesium Iron 63 TIBC 283 Iron Saturation 22 Unsat Iron Binding 220 L Ferritin 83 Total Bilirubin AST ALT Alkaline Phosphatase Troponin I 0.130 H* Total Protein Albumin Globulin Albumin/Globulin Ratio 10/15/25 10/16/25 10/16/25 18:00 00:25 05:39 WBC 6.3 RBC 3.63 L Hgb 10.8 L Hct 34.1 L MCV 94 MCH 29.8 MCHC 31.7 RDW Std Deviation 46.3 Plt Count 138 L Neut % (Auto) 58 Lymph % (Auto) 28 [place] % (Auto) 8 Eos % (Auto) 5 Baso % (Auto) 1 Neut # (Auto) 3.7 Lymph # (Auto) 1.8 [place] # (Auto) 0.5 Eos # (Auto) 0.3 Baso # (Auto) 0.0 Immature Gran # (Auto) 0.02 H Absolute Nucleated RBC 0.00 Immature Gran % 0 Nucleated RBC % 0 PT 11.0 INR 1.0 APTT 70.2 H 71.5 H 71.2 H Sodium 146 H Potassium 4.4 Chloride 110 H Carbon Dioxide 24.8 Anion Gap 11 BUN 33 H Creatinine 1.5 H Estim Creat Clear Calc 31.0 L eGFR 35 L BUN/Creatinine Ratio 22 H Glucose 164 H D Calculated Osmolality 301 H Calcium 8.6 Corrected Calcium 8.8 Phosphorus 4.2 Magnesium 2.0 Iron TIBC Iron Saturation Unsat Iron Binding Ferritin Total Bilirubin 0.3 AST 11 ALT 7 L Alkaline Phosphatase 109 Troponin I Total Protein 6.6 Albumin 3.7 Globulin 2.9 Albumin/Globulin Ratio 1.3 Quality Measures Quality Measures none Advance care planning discussed with:: patient Assessment & Plan Assessment Current Active Medications: Generic Name Dose Route Start Last Admin Trade Name Freq PRN Reason Stop Dose Admin Acetaminophen 650 mg 10/14/25 18:15 Acetaminophen 325 Mg Tablet PO 11/13/25 18:14 Q6H PRN Fever >101.5 Acetaminophen 650 mg 10/14/25 18:15 Acetaminophen 325 Mg Tablet PO 11/13/25 18:14 Q6H PRN PAIN SCALE 1-3 (mild Hydrocodone Bitart/Acetaminophen 1 tab 10/14/25 18:15 Hydrocodone/Apap 5/325 Tablet PO 10/19/25 18:14 Q4HR PRN PAIN SCALE 4-6 (Moderate Aspirin 81 mg 10/15/25 09:00 10/16/25 08:10 Aspirin Ec 81 Mg Tabec PO 11/14/25 08:59 81 mg QDAY PRABHJOT Administration Atorvastatin Calcium 40 mg 10/15/25 21:00 10/15/25 20:11 Atorvastatin Calcium 20 Mg Tablet PO 11/14/25 20:59 40 mg HS PRABHJOT Administration Carvedilol 6.25 mg 10/14/25 21:40 10/16/25 08:10 Carvedilol 3.125 Mg Tablet PO 11/13/25 21:39 6.25 mg BIDWM PRABHJOT Administration Dextrose 25 ml 10/14/25 18:35 10/14/25 20:08 Dextrose 50%-Water Inj 50 Ml Syringe IV 11/13/25 18:34 25 ml Q15MIN PRN Administration BG 50-70 responsive npo pt Dextrose 50 ml 10/14/25 18:35 Dextrose 50%-Water Inj 50 Ml Syringe IV 11/13/25 18:34 Q15MIN PRN BG <50 OR BG <70 & pt unresponsive Glucagon 1 mg 10/14/25 18:35 Glucagon Inj 1 Mg Vial IM Q15MIN PRN BG <70, and no IV access Heparin Sodium/Dextrose 25,000 unit in 250 mls @ 10.668 mls/hr 10/14/25 19:00 10/16/25 06:41 Heparin In D5w Ivpb IV 10/28/25 18:59 12 units/kg/hr .[id number] PRABHJOT 10.668 mls/hr Protocol Titration 12 UNITS/KG/HR Lactated Ringer's 500 mls @ 999 mls/hr 10/16/25 08:15 10/16/25 08:07 Lactated Ringers IV 10/16/25 08:45 999 mls/hr .Q31M ONE Administration Insulin Human Lispro 0 unit 10/15/25 11:30 10/16/25 07:42 Insulin Lispro (Admelog) 1 Unit/0.01 Ml Unit SC 11/14/25 11:29 Not Given ACHS [facility] Protocol Losartan Potassium 100 mg 10/15/25 09:00 10/16/25 08:09 Losartan Potassium 25 Mg Tablet PO 11/14/25 08:59 100 mg QDAY PRABHJOT Administration Nifedipine 60 mg 10/14/25 19:45 10/16/25 08:10 Nifedipine Xl 30 Mg Tabcr PO 11/13/25 19:44 60 mg QDAY PRABHJOT Administration Plan Assessment and plan: Summary: Mr. Carmen is a 79-year-old female with past medical history of type 2 diabetes mellitus with diabetic nephropathy and neuropathy, hypertension, hyperlipidemia, obesity, osteoarthritis asthma, hypercholesterolemia, CKD stage IIIb (follows Dr. Gillespie) and questionable peripheral arterial disease versus venous disease who presented to [facility] emergency department on October 14, 2025 with a chief complaint of chest pain. Cardiology consulted for ACS workup: NSTEMI type I versus type II. #ACS ruled out?NSTEMI type II more likely versus type I less likely #Cardiac chest pain #Elevated troponin Patient reported that she was doing her morning chores after which she sat on chair to watch television when she experienced 10/10 sharp chest pain radiating to her back reported that the pain lasted for around 10 to 15 minutes after which she had intermittent chest pains lasting for about 5 minutes with a total of 4-5 episodes, chest pain while at rest, no aggravating or relieving factors noted, patient's chest pain resolved on its own and improved as she walked with a walker. She denies any diaphoresis, palpitations, shortness of breath, orthopnea, dizziness, falls, syncope. EKG 10/14/2025: Sinus bradycardia, rate [address]-T changes, Q waves noted lead V3 V4 Troponin downtrending: <0.020 -> 0.069 -> 0.102-> 0.213->0.136 CAD risk factors: Hypertension, hyperlipidemia, type 2 diabetes mellitus with complications, obesity, family history Hemoglobin A1c 6.6, triglyceride 112, cholesterol 109, LDL 52, HDL 35, TSH 1.65 -FLORI score: 115 points: 7% probability of from admission to 6 months -FERDINAND score for UA/NSTEMI: 5 points, 26% risk of 14 days of all-cause mortality new or recurrent [place] or severe recurrent ischemia requiring urgent revascularization -Heart score for Major Cardiac events: 4 points, moderate score, risk of mace 12-16% Echocardiogram 10/15/2025: 1. Left ventricle size is normal and systolic function is normal. Estimated ejection fraction is 60-65%. There is normal diastolic function. There is mild concentric remodeling noted. 2. Right ventricle chamber size is normal and systolic function is normal. Estimated RVSP is 27 mmHg. 3. Trace MR and TR. Mild MAC. Mild to moderate AV sclerosis without stenosis. 4. Normal IVC with estimated RA pressure 8 mmHg. Recommendations: - Completed heparin GTT for 48 hours -Continue daily aspirin, discharge on aspirin 81 mg daily -Patient currently does not have any symptoms troponins flat at 0.213-0.226, likely NSTEMI type II in setting of diastolic heart failure -Patient will need outpatient workup, stress test and Holter monitoring outpatient. #New onset diastolic heart failure with preserved ejection fraction, EF 60 to 65% Patient had 3+ bilateral lower extremity edema, chest x-ray negative for vascular congestion, BNP 125 on presentation Ejection fraction 60 to 65% on echocardiogram, LVH noted with concentric remodeling, diastolic function could not be graded on this echocardiogram, considering clinical findings patient does have diastolic heart failure. Recommendations: - Creatinine elevation at 1.5 noted, does have CKD. Recommend discharging on Lasix 20 mg daily, agree with diuretic holiday. - Will follow renal function with a.m., strict TERI, daily weight, fluid restriction 1500 cc and low-sodium diet - Iron panel reviewed, continue outpatient oral iron - Keep potassium greater than 4 and magnesium greater than 2 at all times - Repeat renal panel outpatient in 1 week, follow-up with nephrology. #Hypertension Blood pressure well-controlled with Coreg 6.25 twice daily, losartan 100 mg daily and nifedipine 60 mg daily. Heart rate 50s noted, uptitrate nifedipine as needed for improved blood pressure control to 90 mg daily. #Sinus bradycardia EKG on presentation shows sinus bradycardia patient denies any dizziness lightheadedness or other symptoms. Patient has good chronotropic response -Will need outpatient Holter monitoring. #?Peripheral arterial disease History of PAD, possible procedure done outpatient in [place] - Outpatient workup #Dyslipidemia Triglyceride 112, cholesterol 109, LDL 52, HDL 35 - Continue atorvastatin 40 mg #Asthma #CKD stage IIIb #Type 2 diabetes mellitus #Osteoarthritis -Management per primary team Thank you for the consult and allowing to participate in the care of the patient. Cardiology will continue to follow. Case discussed with Attending Physician Dr. Hugo Feliciano MD Internal Medicine PGY-2 Disclaimer: This note was dictated by speech recognition. Minor errors in maintenance associate may be present due to voice recognition software. Attending Provider Attestation/Addendum I have personally seen and examined the patient separately on the above date of service and discussed the plan of care with the resident. I reviewed the resident Dr. Eh Feliciano consultation progress note and agree with the resident findings and plan in the note above and have also edited the documentation to reflect my findings and plan. Hugo Navas M.D. Interventional Cardiology
--- NOTE | 2025-10-16 08:59 | PC.SS ---
Update: Plan is to d/c the patient today.
--- NOTE | 2025-10-16 09:07 | PD.RESPRO ---
Documentation for date of: 10/16/25 Exam Vital Signs Temp Pulse Resp BP Pulse Ox O2 Del Method 97.2 F 60 17 131/63 H 98 Room Air 10/16/25 08:00 10/16/25 08:10 10/16/25 08:00 10/16/25 08:10 10/16/25 08:00 10/16/25 08:00 Objective Labs 10/16/25 05:39 10/16/25 05:39 Labs: Laboratory Results - last 24 hr 10/15/25 10/15/25 10/15/25 05:30 10:16 12:25 WBC RBC Hgb Hct MCV MCH MCHC RDW Std Deviation Plt Count Neut % (Auto) Lymph % (Auto) [place] % (Auto) Eos % (Auto) Baso % (Auto) Neut # (Auto) Lymph # (Auto) [place] # (Auto) Eos # (Auto) Baso # (Auto) Immature Gran # (Auto) Absolute Nucleated RBC Immature Gran % Nucleated RBC % PT INR APTT 78.1 H D Sodium Potassium Chloride Carbon Dioxide Anion Gap BUN Creatinine Estim Creat Clear Calc eGFR BUN/Creatinine Ratio Glucose Calculated Osmolality Calcium Corrected Calcium Phosphorus Magnesium Iron 63 TIBC 283 Iron Saturation 22 Unsat Iron Binding 220 L Ferritin 83 Total Bilirubin AST ALT Alkaline Phosphatase Troponin I 0.130 H* Total Protein Albumin Globulin Albumin/Globulin Ratio 10/15/25 10/16/25 10/16/25 18:00 00:25 05:39 WBC 6.3 RBC 3.63 L Hgb 10.8 L Hct 34.1 L MCV 94 MCH 29.8 MCHC 31.7 RDW Std Deviation 46.3 Plt Count 138 L Neut % (Auto) 58 Lymph % (Auto) 28 [place] % (Auto) 8 Eos % (Auto) 5 Baso % (Auto) 1 Neut # (Auto) 3.7 Lymph # (Auto) 1.8 [place] # (Auto) 0.5 Eos # (Auto) 0.3 Baso # (Auto) 0.0 Immature Gran # (Auto) 0.02 H Absolute Nucleated RBC 0.00 Immature Gran % 0 Nucleated RBC % 0 PT 11.0 INR 1.0 APTT 70.2 H 71.5 H 71.2 H Sodium 146 H Potassium 4.4 Chloride 110 H Carbon Dioxide 24.8 Anion Gap 11 BUN 33 H Creatinine 1.5 H Estim Creat Clear Calc 31.0 L eGFR 35 L BUN/Creatinine Ratio 22 H Glucose 164 H D Calculated Osmolality 301 H Calcium 8.6 Corrected Calcium 8.8 Phosphorus 4.2 Magnesium 2.0 Iron TIBC Iron Saturation Unsat Iron Binding Ferritin Total Bilirubin 0.3 AST 11 ALT 7 L Alkaline Phosphatase 109 Troponin I Total Protein 6.6 Albumin 3.7 Globulin 2.9 Albumin/Globulin Ratio 1.3 Quality Measures Quality Measures none Assessment & Plan Assessment Current Active Medications: Generic Name Dose Route Start Last Admin Trade Name Freq PRN Reason Stop Dose Admin Acetaminophen 650 mg 10/14/25 18:15 Acetaminophen 325 Mg Tablet PO 11/13/25 18:14 Q6H PRN Fever >101.5 Acetaminophen 650 mg 10/14/25 18:15 Acetaminophen 325 Mg Tablet PO 11/13/25 18:14 Q6H PRN PAIN SCALE 1-3 (mild Hydrocodone Bitart/Acetaminophen 1 tab 10/14/25 18:15 Hydrocodone/Apap 5/325 Tablet PO 10/19/25 18:14 Q4HR PRN PAIN SCALE 4-6 (Moderate Aspirin 81 mg 10/15/25 09:00 10/16/25 08:10 Aspirin Ec 81 Mg Tabec PO 11/14/25 08:59 81 mg QDAY PRABHJOT Administration Atorvastatin Calcium 40 mg 10/15/25 21:00 10/15/25 20:11 Atorvastatin Calcium 20 Mg Tablet PO 11/14/25 20:59 40 mg HS PRABHJOT Administration Carvedilol 6.25 mg 10/14/25 21:40 10/16/25 08:10 Carvedilol 3.125 Mg Tablet PO 11/13/25 21:39 6.25 mg BIDWM PRABHJOT Administration Dextrose 25 ml 10/14/25 18:35 10/14/25 20:08 Dextrose 50%-Water Inj 50 Ml Syringe IV 11/13/25 18:34 25 ml Q15MIN PRN Administration BG 50-70 responsive npo pt Dextrose 50 ml 10/14/25 18:35 Dextrose 50%-Water Inj 50 Ml Syringe IV 11/13/25 18:34 Q15MIN PRN BG <50 OR BG <70 & pt unresponsive Glucagon 1 mg 10/14/25 18:35 Glucagon Inj 1 Mg Vial IM Q15MIN PRN BG <70, and no IV access Heparin Sodium/Dextrose 25,000 unit in 250 mls @ 10.668 mls/hr 10/14/25 19:00 10/16/25 06:41 Heparin In D5w Ivpb IV 10/28/25 18:59 12 units/kg/hr .[id number] PRABHJOT 10.668 mls/hr Protocol Titration 12 UNITS/KG/HR Insulin Human Lispro 0 unit 10/15/25 11:30 10/16/25 07:42 Insulin Lispro (Admelog) 1 Unit/0.01 Ml Unit SC 11/14/25 11:29 Not Given ACHS PRABHJOT Protocol Losartan Potassium 100 mg 10/15/25 09:00 10/16/25 08:09 Losartan Potassium 25 Mg Tablet PO 11/14/25 08:59 100 mg QDAY PRABHJOT Administration Nifedipine 60 mg 10/14/25 19:45 10/16/25 08:10 Nifedipine Xl 30 Mg Tabcr PO 11/13/25 19:44 60 mg QDAY PRABHJOT Administration
[2025-10-16] MEDS: INSULIN LISPRO (AdmeLOG) 1 UNIT/0.01 ML UNIT SC (12:05)
--- NOTE | 2025-10-16 12:18 | ESDS_ITS ---
<Statement entered by Demi Stephens DO - 10/16/25 16:44> I, Demi Stephens DO, attest that I was physically present for the river portions of the service and evaluated the patient with the resident and I reviewed and discussed the case with the resident and agree with the resident's findings and plans of care as documented above <Statement entered by Marsha Cash MD - 10/16/25 16:28> Patient was seen and examined by me personally. I have reviewed the below documentation by the team resident and agree with its findings with any exceptions as below. Discharge plan was discussed with the attending, Dr. Stephens. Marsha Cash, PGY-3 Planned Discharge Date 10/16/25 DS: Providers Provider Date of admission: 10/14/25 18:16 Primary care physician: Daron Meraz MD Admitting Provider: Amnauel Tuttle DO Attending Provider on Admission: Amanuel Tuttle DO Consults: 10/14/25 17:06 Consult to Cardiology Stat Comment: Consulting Provider: Hugo Navas Attending Provider on DC: Demi Stephens DO Discharging Provider: Demi Stephens DO DS: Diagnosis Problem List Completed Was Problem List Reviewed/Reconciled?: Yes Hospital Course Hospital Course Hospital course: ED Course: Patient is a 79 year old female with PMH of hypertension, hyperlipidemia, insulin-dependent diabetes mellitus, asthma presenting to ED on 10/14 with new- onset chest pain. Troponin castro < 0.02 to 0.102. BNP 125. CXR no acute diagnostic abnormality. EKG showed A-fib with SVR and bradycardia with rate of 49. Echo showed EF 60-65%. ED spoke with primer waterproofing machine adjuster Dr. Navas; ED spoke with hospitalist team who accepted for admission on 10/14. Inpatient Course: On 10/15, patient reports no further episodes of chest pain since admission. Per cardiology, follow up outpatient with no need for emergent cardiac cath. Troponin peaked at 0.226 overnight and downtrended. Continued on aspirin, atorvastatin. Continued heparin drip for 24 hours. Patient had bilateral 3+lower extremity pitting edema, stated that she has had this since some vascular procedure, has been told she has PAD. Echo showed 60-65%, suspected mild diastolic heart failure per cardiology who gave Lasix yesterday and today. On 10/16, cardiology recommended giving lasix 20 qday as an outpatient (but hold for 3 days), and that she is stable for discharge. Discharge Instructions: Instructions: -New medication Carvedilol 6.25 mg twice daily and increase nifedipine 60 mg once daily -Stop metoprolol and STOP Chlorthalidone -Repeat Renal Panel -Hold Lasix for 3 days and resume Lasix 20mg daily -Hold insulin; keep checking blood sugars with every meal; resume insulin if sugars are above 200 after meals -Please follow up with your primary care provider within one week of discharge -If your symptoms worsen,please seek immediate medical attention and return to your nearest emergency room -If you do not have a primary care provider, you may follow up at the [facility] at [address] [place] [address] [address], [place] [address], Problem List: #Newly diagnosed HfPEF (60-65%) #NSTEMI #Troponemia, likely cardiac #A-fib with SVR, resolved #ACS, ruled out #IDDM #HTN #HLD This case was discussed with my attending physician, Dr. Stephens, and senior resident, Dr. Cash. Matteo Shaw, PGY1 Status at Discharge Functional status at discharge: independent ambulation Overall status at discharge: patient is back to baseline Time Spent with Patient Time attestation: Total time spent providing and/or coordinating discharge services: Time spent: Greater than 30 minutes Exam Vital Signs Temp Pulse Resp BP Pulse Ox O2 Del Method 97.2 F 60 17 131/63 H 98 Room Air 10/16/25 08:00 10/16/25 08:10 10/16/25 08:00 10/16/25 08:10 10/16/25 08:00 10/16/25 08:00 Narrative Exam General: A/O x3, no acute distress, well-nourished, well-developed Eyes: PERRL, EOMI. Anicteric, vision grossly intact. Ears: No ear pain, no ear discharge, Hearing grossly intact. Nose: No nasal discharge. Mouth/Throat: Moist mucous membranes, no redness, no lesions. Neck: Neck supple, non-tender, no cervical lymphadenopathy. Lungs: Clear KENNY to auscultation and percussion, No accessory muscle use. Cardio: Normal S1/S2, regular rhythm, no murmurs, no JVD or carotid bruits. Abdomen: Soft, non-tender, no palpable masses, peristalsis present, no guarding or rebound. Extremities: Symmetrical, no significant deformities, 1+ peripheral edema, non- tender, peripheral pulses present. Skin: No rashes, no lesions, warm to touch. Neuro: No focal neurological deficits. Psych: Cooperative, appropriate mood and effect. Discharge Plan Plan Patient Disposition: HOME (Self Care) Patient condition on transfer: Stable Care Plan Goals: Instructions: -New medication Carvedilol 6.25 mg twice daily and increase nifedipine 60 mg once daily -Stop metoprolol and STOP Chlorthalidone -Repeat Renal Panel -Hold Lasix for 3 days and resume Lasix 20mg daily -Hold insulin; keep checking blood sugars with every meal; resume insulin if sugars are above 200 after meals -Please follow up with your primary care provider within one week of discharge -If your symptoms worsen,please seek immediate medical attention and return to your nearest emergency room -If you do not have a primary care provider, [facility] [address], [place] [address], Prescriptions/Referrals Prescriptions/Med Rec: New nifedipine 30 mg Tablet Extended Release 24hr 60 mg PO QDAY 30 Days Qty: 60 0RF atorvastatin 20 mg Tablet 40 mg PO HS 30 Days Qty: 60 0RF carvedilol 3.125 mg Tablet 6.25 mg PO BIDWM 30 Days Qty: 60 1RF Continued montelukast [Singulair] 10 MG tablet 10 mg PO HS Qty: 0 losartan [Cozaar] 100 MG tablet 100 mg PO QDAY Qty: 0 Jardiance 25 mg Tablet 25 mg PO QDAY insulin glargine [Lantus Solostar U-100 Insulin] 100 unit/mL (3 mL) insulin pen 25 unit SUBCUT .am Patient Comments: INJECT 25 UNITS IN THE MORNING AND 35 UNITS IN THE EVENING SUBCUTANEOUS EVERY DAY aspirin 81 mg tablet,delayed release (DR/EC) 81 mg PO QDAY Patient Comments: TAKE 1 TABLET BY MOUTH DAILY loratadine 10 mg tablet 10 mg PO QDAY Patient Comments: TAKE 1 TABLET BY MOUTH DAILY albuterol sulfate 90 mcg/actuation HFA aerosol inhaler 2 puff INHALATION PRN Patient Comments: INAHLE 2 PUFFS BY MOUTH EVERY 6 HOURS NEEDED Held glipizide 10 MG tablet 10 mg PO BID Qty: 0 Hold Instructions: Resume on 11/22/25. Hold Glipizide given A1c 6.6% Discontinued metoprolol succinate [Toprol XL] 100 MG tablet extended release 24 hr 100 mg PO QDAY Qty: 0 chlorthalidone 50 MG tablet 50 mg PO QDAY Qty: 0 nifedipine 10 mg Capsule 50 mg PO QDAY atorvastatin 10 mg tablet 10 mg PO QDAY Patient Comments: TAKE 1 TABLET BY MOUTH DAILY Referrals: Hugo Navas MD [Referring Provider, Cardiology] Daron Meraz MD [Primary Care Provider] Outpatient Orders (i.e. Home Health, Labs, Imaging): Renal Function Panel (Routine) Location: None Selected Ordered By: Eda Terrazas Patient/Caregiver Discharge Instructions Education Materials: Discharge Instructions for Angina, Heart Attack Dc, Heart Attack: Back at Home Print Language: Swedish Stand Alone Forms: Radha Award Info., Patient Portal Info Letter Discharge Order Discharge Orders: Discharge (Routine); Ordered 10/16/25 Ordered By: Eda Terrazas Quality Discharge Quality Measures none
== END 2025-10-16 13:00 | disposition home or self-care (01) | DRG 281 ==
LOC: SERX 17:50 → SERHOLD 18:42 → S2NX 21:17
PROVIDERS: Nurse Practitioner Family; Admitting Provider Student in an Organized Health Care Education/Training Program; Emergency Provider Family Medicine; PCP Family Medicine; Visit Provider Student in an Organized Health Care Education/Training Program
DX: I21.4 Non-ST elevation (NSTEMI) myocardial infarction (principal); I13.0 Hypertensive heart and chronic kidney disease with heart failure and stage 1 through stage 4 chronic kidney disease, or unspecified chronic kidney disease; I50.30 Unspecified diastolic (congestive) heart failure; R00.1 Bradycardia, unspecified; N18.32 Chronic kidney disease, stage 3b; E11.22 Type 2 diabetes mellitus with diabetic chronic kidney disease; I48.91 Unspecified atrial fibrillation; J45.909 Unspecified asthma, uncomplicated; E78.00 Pure hypercholesterolemia, unspecified; E11.40 Type 2 diabetes mellitus with diabetic neuropathy, unspecified; M79.89 Other specified soft tissue disorders; Z79.4 Long term (current) use of insulin; Z79.82 Long term (current) use of aspirin; M19.90 Unspecified osteoarthritis, unspecified site; Z79.84 Long term (current) use of oral hypoglycemic drugs; Z79.899 Other long term (current) drug therapy; Z88.0 Allergy status to penicillin; Z88.8 Allergy status to other drugs, medicaments and biological substances
CPT/HCPCS: 36415; 71045; 80053; 80061; 80069; 81001; 82728; 83036; 83540; 83550; 83735; 83880; 84100; 84439; 84443; 84484; 85025; 85610; 85730; 93005; 93306; 93970; 96360; 99285; J1644; J1815; J1938; J3475; J7030; J7120; A9270